=== PATIENT | male | born 1955 | race Caucasian/White ===

== ENCOUNTER → 2019-12-04 12:28 | Outpatient (BNVA) | payer MEDICARE, MEDICAID, SELFPAY | PROVIDERS: Family Provider Family Medicine; PCP Family Medicine; Visit Provider Nurse Practitioner Psychiatric/Mental Health | DX: F20.0 Paranoid schizophrenia (principal) | CPT/HCPCS: 99213 ==

== ENCOUNTER → 2020-02-26 08:05 | Outpatient (BNVA) | payer MEDICARE, MEDICAID, SELFPAY | PROVIDERS: Family Provider Family Medicine; PCP Family Medicine; Visit Provider Nurse Practitioner Psychiatric/Mental Health | DX: F20.0 Paranoid schizophrenia (principal) | CPT/HCPCS: 99213 ==

== ENCOUNTER → 2020-05-20 09:11 | Outpatient (BNVA) | payer MEDICARE, MEDICAID, SELFPAY | PROVIDERS: Family Provider Family Medicine; PCP Family Medicine; Visit Provider Nurse Practitioner Psychiatric/Mental Health | DX: F20.0 Paranoid schizophrenia (principal) | CPT/HCPCS: 99213 ==

== ENCOUNTER → 2020-07-29 07:51 | Outpatient (BNVA) | payer MEDICARE, MEDICAID, SELFPAY ==
[2020-06-09 15:26] VITALS: BP 109/72; BMI 26.9
== END ==
PROVIDERS: Family Provider Family Medicine; PCP Family Medicine; Visit Provider Nurse Practitioner Psychiatric/Mental Health
DX: F20.0 Paranoid schizophrenia (principal); F41.1 Generalized anxiety disorder
CPT/HCPCS: 99213

== ENCOUNTER → 2020-10-22 08:14 | Outpatient (BNVA) | payer MEDICAID, SELFPAY ==
[2020-06-09 15:26] VITALS: BP 109/72; BMI 26.9
== END ==
PROVIDERS: Family Provider Family Medicine; PCP Family Medicine; Visit Provider Nurse Practitioner Psychiatric/Mental Health
DX: F20.0 Paranoid schizophrenia (principal)
CPT/HCPCS: 99214

== ENCOUNTER → 2021-01-13 09:05 | Outpatient (BNVA) | payer MEDICAID, SELFPAY ==
[2020-10-28 10:57] VITALS: BP 109/72; BMI 26.9
== END ==
PROVIDERS: Family Provider Family Medicine; PCP Family Medicine; Visit Provider Nurse Practitioner Psychiatric/Mental Health
DX: F20.0 Paranoid schizophrenia (principal)
CPT/HCPCS: 99214

== ENCOUNTER 2021-02-20 08:49 | Outpatient (CLI) | payer MEDICAID, SELFPAY ==
[2021-02-13 13:15] VITALS: BP 109/72; BMI 26.9
--- NOTE | 2021-02-20 09:34 | XR_ITS ---
WS: [id number] HIP WITH PELVIS LEFT TECHNIQUE: 3 views of the left hip with pelvis CLINICAL INFORMATION: LYTIC LESION ON PRIOR X-RAY COMPARISON: July 30, 2019 FINDINGS: Normal anatomic alignment. No acute fractures. Moderate degenerative arthritis left hip. Vague lucent area in the left femoral neck unchanged since the prior examination. Vascular calcification. XR/XR hip LT 2-3V wo/w pel* [id number] IMPRESSION: 1. Vague lucent lesion left femoral neck is unchanged since 2019. This is inde terminant and could be further evaluated with CT or MRI for better anatomic det ail. Metastatic disease or neoplasm not entirely excluded. 2. Moderate degenerative arthritis left hip with joint space narrowing. 3. Vascular calcification. Tonnis classification: grade 2: small cysts in femoral head/acetabulum or moder ate joint space narrowing or moderate loss of head sphericity
== END 2021-02-20 08:50 | disposition home or self-care (01) ==
PROVIDERS: PCP Family Medicine; Visit Provider Family Medicine
DX: M25.852 Other specified joint disorders, left hip (principal); M16.12 Unilateral primary osteoarthritis, left hip
CPT/HCPCS: 73502

== ENCOUNTER 2021-03-25 08:11 | Outpatient (CLI) | payer MEDICARE, MEDICAID, SELFPAY ==
[2021-02-13 13:15] VITALS: BP 109/72; BMI 26.9
--- NOTE | 2021-03-25 08:23 | CT_ITS ---
WS: [id number] NONCONTRAST CT LEFT HIP TECHNIQUE: Noncontrast CT left hip with coronal and sagittal reformatted images. CLINICAL INFORMATION: LYTIC LESION L FEMORAL NECK COMPARISON: None. DLP: 908.[address] scans at [facility] use at least one of these dose optimization techniques: automat ed exposure control; mA and/or kV adjustment per patient size (includes targeted exams where dose is matched to clinical indication); or iterative reconstruction. FINDINGS: Noncontrast CT left hip. Again seen is an ill-defined region of lucency involving the femoral neck co rresponding to the findings in the prior radiograph. This measures approximately 2.5 x 1.4 cm. No marcial dence of pathologic fracture or cortical involvement. This is nonspecific in appearance and may repre sent normal osteopenic marrow and less likely lytic lesion. This appears unchanged since 2019 which i s reassuring. Recommend further evaluation with MRI to exclude underlying lesion such as myeloma. Prior healed fracture along the inferior pubic ramus with callus formation. Normal acetabulum. Modera te degenerative narrowing left hip. Minimal spurring along the acetabulum. Enthesophyte along the gre ater trochanter. No acute fractures. Proximal femoral neck appears normal. Normal femoral head. No ev idence of avascular necrosis or subchondral collapse. Vascular calcification. CT/CT hip LT wo con* [id number] IMPRESSION: 1. Again seen is an ill-defined region of lucency involving the femoral neck c orresponding to the findings in the prior radiograph. This measures approximate ly 2.5 x 1.4 cm. No evidence of pathologic fracture or cortical involvement. Th is is nonspecific in appearance and felt to represent normal variant osteopenic femoral neck and less likely lytic lesion. This appears unchanged since 2019 w hich is reassuring. Recommend further evaluation with MRI to definitively exclu de underlying lesion considering left hip pain. 2. No acute fractures. 3. Chronic fracture left inferior pubic ramus with callus formation. 4. Moderate degenerative narrowing left hip. No evidence of avascular necrosis or subchondral collapse.
--- NOTE | 2021-03-25 08:33 | XR_ITS ---
WS: [id number] Chest 2 views, 03/25/2021 Clinical Data: GENERAL ADULT MEDICAL EXAMINATION Comparison: PA and lateral chest, 04/19/2016. Findings: No nodules, masses or effusions are seen. The heart is normal. The pulmonary vascularity is not increased. No pneumonia or pneumothorax is seen. The diaphragms are flattened. The aortic arch a nd descending aorta show tortuosity. XR/XR chest 2V* [id number] Impression: Atherosclerosis and hyperinflation.
--- NOTE | 2021-03-25 10:21 | NM_ITS ---
WS: [id number] NUCLEAR MEDICINE BONE SCAN Radiopharmaceutical: 27.0 Tc-99m MDP mCi IV Injection site: Right antecubital Postinjection imaging delay: 1 hr CLINICAL INFORMATION: LYTIC BONE LESION OF HIP COMPARISON: CT hip earlier today. Prior radiograph February 20, 2021. FINDINGS: Bone lesions: There are no osseous lesions suspicious for metastatic disease. No focal uptake in the left femoral neck to correspond to the femoral neck lesion. Soft tissue contours: Normal. Kidneys: Normal. Other findings: Focal uptake in the lower cervical spine eccentric to the right involving the posteri or elements may be due to degenerative change versus recent trauma. Patient reports recent fall with shoulder pain. Incidental degenerative radiotracer uptake in both AC joints and lower cervical spine. NM/NM bone scan whole body* [id number] IMPRESSION: 1. No evidence of osseous metastatic disease. 2. No abnormal radiotracer uptake in the left femoral neck to correspond to th e left femoral neck lesion. Previously described lucency in the femoral neck is likely benign. 3. Focal bony uptake in the right lower cervical spine involving the posterior elements may be inflammatory, degenerative, or posttraumatic. Patient reports recent fall with shoulder pain. Recommend further evaluation of the cervical sp ine with cervical spine CT
== END 2021-03-25 08:12 | disposition home or self-care (01) ==
PROVIDERS: PCP Family Medicine; Visit Provider Family Medicine
DX: Z00.00 Encounter for general adult medical examination without abnormal findings (principal); M89.9 Disorder of bone, unspecified; I70.90 Unspecified atherosclerosis; S32.502A Unspecified fracture of left pubis, initial encounter for closed fracture; X58.XXXA Exposure to other specified factors, initial encounter
CPT/HCPCS: 71046; 73700; 78306; A9561

== ENCOUNTER → 2021-04-01 14:10 | Outpatient (BNVA) | payer OTHER, SELFPAY ==
[2021-02-13 13:15] VITALS: BP 109/72; BMI 26.9
== END ==
PROVIDERS: PCP Family Medicine; Visit Provider Nurse Practitioner Psychiatric/Mental Health
DX: F20.0 Paranoid schizophrenia (principal); Z79.899 Other long term (current) drug therapy
CPT/HCPCS: 80061; 83036

== ENCOUNTER → 2021-04-07 10:36 | Outpatient (BNVA) | payer MEDICARE, MEDICAID, SELFPAY ==
[2021-04-02 15:17] VITALS: BP 105/65; BMI 25.8
== END ==
PROVIDERS: PCP Family Medicine; Visit Provider Nurse Practitioner Psychiatric/Mental Health
DX: F20.0 Paranoid schizophrenia (principal)
CPT/HCPCS: 99214

== ENCOUNTER → 2021-06-30 10:39 | Outpatient (BNVA) | payer MEDICARE, MEDICAID, SELFPAY ==
[2021-04-02 15:17] VITALS: BP 105/65; BMI 25.8
== END ==
PROVIDERS: PCP Family Medicine; Visit Provider Nurse Practitioner Psychiatric/Mental Health
DX: F20.0 Paranoid schizophrenia (principal)
CPT/HCPCS: 99214

== ENCOUNTER 2021-07-27 13:20 | Emergency (ER) | payer MEDICARE, MEDICAID, SELFPAY ==
[2021-04-02 15:17] VITALS: BP 105/65; BMI 25.8
[2021-07-27 14:00] VITALS: BP 150/78; PULSE 81; RESP 16; TEMP 36.8; O2SAT 100; BMI 25.4
--- NOTE | 2021-07-27 20:52 | ED_ITS ---
HPI - Skin/Abscess/Foreign Bdy General: Chief complaint: Skin/Abscess/Foreign Body Stated complaint: SKIN INFECTION POST BUG BITE Time Seen by Provider: 07/27/21 20:41 Source: patient Mode of arrival: ambulatory Limitations: no limitations History of Present Illness: HPI narrative: Patient is a 66-year-old male who presents to ED today with a complaint of an abscess under his left axillary region. Patient states he first began noticing symptoms approximately 3 to 4 days and thought he initially got bit by an insect/spider. Patient states since that time lesion has continued to worsen and states now it has a hole in it . He states area has been draining. No known history of staph or MRSA. He has not been running fevers. MD complaint: abscess/boil Onset (ago): day(s) Tetanus up to date: yes Location: LUE (axillary region) Severity: moderate Pain Consistency: constant Relieving factors: none Exacerbating factors: none Context: other (possible insect bite although never witnessed) Associated symptoms: Reports no associated symptoms; Deny chills, fever(s), nausea or vomiting Treatments prior to arrival: none Review of Systems Const: Denies: fever(s), chills, body aches, fatigue or malaise Card: Denies: chest pain Resp: Denies: dyspnea GI: Denies: nausea, vomiting or diarrhea Musc: Denies: neck pain or joint pain Skin/Breast: Reports: new lesions (L axillary region) Neuro: Denies: numbness in extremities, weakness in extremities or sensory changes PFS ED PFSH: Medical History (Updated 07/27/21 @ 22:07 by NISREEN Hale) Paranoid schizophrenia Psychiatric care Family History Grandfather Cancer CAD (coronary artery disease) Hypertension Mother Cancer Other Paranoid schizophrenia Social History (Updated 04/01/21 @ 15:08 by Ariadne Mack LPN) Smoking and tobacco status: former smoker Quit status (tobacco): has quit using tobacco Year quit tobacco: 2010 Second hand smoke exposure: No Alcohol intake: never Adopted: No Caregiver/support person: Yes Lives independently: No Housing: Assisted Living Facility Marital status: Single Number of children: 0 Highest education level completed: High School Graduate service: No Current occupational status: disabled Current occupational exposures/hazards: No Pets and animals: No History of recent travel: No Leisure activites: other Leisure activities details: read jokes, walking Sexually active: No Current gender identity: Male Sherrill/Lutheran: Jehovah'S Witness Agree to transfusion: Yes Financial difficulty paying for basics: Not Very Hard Physical Exam Const: COMMON NORMALS: no acute distress, average body habitus, patient oriented x3, no limitations, alert and well nourished GENERAL APPEARANCE: cooperative and disheveled ORIENTATION/CONSCIOUSNESS: Yes awake, Yes oriented to person, Yes oriented to place and Yes oriented to time HENMT: COMMON NORMALS: normocephalic and atraumatic HEAD & SCALP: normocephalic and atraumatic Resp: COMMON NORMALS: normal respiratory effort and clear to auscultation bilaterally AUSCULTATION: clear to auscultation bilaterally Cardio: COMMON NORMALS: regular rate and regular rhythm RATE: regular rate RHYTHM: regular rhythm Extremity: COMMON NORMALS: normal to inspection, full ROM, capillary refill normal, no joint enlargement and no clubbing, cyanosis or edema GENERAL: Yes normal exam except as noted Neuro: COMMON NORMALS: patient oriented x3 SENSORIUM/ORIENTATION: Yes alert, Yes oriented to person, Yes oriented to place and Yes oriented to time Skin: NARRATIVE SKIN EXAM: pt has a macerated appearing lesion underneath L axilla (measures approximately 1.5 in x 3 in) that extends onto volar upper arm surface (1 in x 2 in); there is central skin breakdown to axilla with eschar/granulation tissue formation; purulent non-odorous drainage expressed from axilla; small developing abscess to volar upper arm that is not amendable to I&D at this time; NV intact extremity with normal ROM Course Vital Signs: Vital signs: Vital Signs Temperature 98.2 F 07/27/21 14:00 Pulse Rate 80 07/27/21 20:53 Respiratory Rate 16 07/27/21 20:53 Blood Pressure 148/72 07/27/21 20:53 Pulse Oximetry 100 07/27/21 20:53 MDM - Skin/Abscess/Foreign Bdy MDM Narrative: Medical decision making narrative: Lesion is already actively draining on its own. Wound culture obtained. There is nothing further to incise and drain at this time. Patient is not febrile or tachycardic. He is normal white count. Patient was given IM clindamycin here will be placed on antibiotics at home with close follow-up. Remainder of labs are unremarkable. He chronically has mild hyponatremia. Lab Data: Labs: Lab Results 07/27/21 07/27/21 21:30 21:30 WBC 9.7 10^3/uL 10^3/ uL (4.0-10.0) RBC 4.12 10^6/uL 10^6 /uL (4.1-5.3) Hgb 12.4 g/dL g/dL (11.7-16.6) Hct 37.2 % L % (42.0-52.0) MCV 90.3 fl fl (80-94) MCH 30.1 pg pg (28.0-34.0) MCHC 33.3 g/dL g/dL (30.0-36.0) RDW 12.3 % % (12.1-15.1) Plt Count 297 10^3/cmm 10^3 /cmm (130-400) MPV 9.1 fL fL (7.4-10.4) Neut % (Auto) 60.2 % % Lymph % (Auto) 23.4 % % [place] % (Auto) 10.4 % % Eos % (Auto) 3.7 % % Baso % (Auto) 0.9 % % Neut # (Auto) 5.81 10^3/uL 10^3 /uL (1.8-7.7) Lymph # (Auto) 2.3 10^3/uL 10^3/ uL (0.8-4.8) [place] # (Auto) 1.0 10^3/uL H 10^ 3/uL (0.2-0.9) Eos # (Auto) 0.4 10^3/uL 10^3/ uL (0.0-0.8) Baso # (Auto) 0.1 10^3/uL 10^3/ uL (0.0-0.1) Nucleated RBC % (a uto) 0 % % Nucleated RBCs # 0.0 /100WBC /100W BC Sodium 129 mmol/L L mmol /L (136-145) Potassium 4.3 mmol/L mmol/L (3.5-5.1) Chloride 92 mmol/L L mmol/ L (98-107) Carbon Dioxide 28 mmol/L mmol/L (22-29) Anion Gap 13.3 (5-19) BUN 5 mg/dL L mg/dL (8-23) Creatinine 0.5 mg/dL L mg/dL (0.7-1.2) GFR Calculation 166.9 mL/min H mL /min (90-130) Glucose 113 mg/dL mg/dL (65-115) Calculated Osmolal ity 266 mOsm/kg L mOs m/kg (285-295) Calcium 9.0 mg/dL mg/dL (8.5-10.5) Total Bilirubin 0.3 mg/dL mg/dL (0.15-1.2) AST 16 U/L U/L (0-40) ALT 9 U/L U/L (0-41) Alkaline Phosphata se 90 IU/L IU/L (40-130) Total Protein 7.3 g/dL g/dL (6.6-8.7) Albumin 3.8 g/dL g/dL (3.5-5.2) Globulin 3.5 g/dL g/dL (1.3-4.6) Discharge Plan Discharge Patient Disposition: Home Clinical Impression: Abscess of axilla, left Condition: Stable Prescriptions: New clindamycin HCl 300 mg capsule 300 mg PO Q6H 7 Days Qty: 28 RF: 0 No Action albuterol sulfate 90 mcg/actuation HFA aerosol inhaler 2 puff INHALATION Q6H PRNRF: 0 ibuprofen 800 mg tablet 800 mg PO Q4H PRNRF: 0 sodium chloride [Saline Nasal] 0.65 % aerosol,spray 2 spray INTRANASAL QID PRNRF: 0 acetaminophen [Tylenol] 325 mg tablet 325 mg PO .COMPLEX PRNRF: 0 montelukast [Singulair] 10 mg tablet 10 mg PO DAILY RF: 0 lisinopril 10 mg tablet 10 mg PO DAILY RF: 0 levetiracetam [Keppra] 1,000 mg tablet 1,000 mg PO BID RF: 0 levetiracetam [Keppra] 250 mg tablet 250 mg PO BID RF: 0 prenat.vits,gabi,skb-yidi-ywkny Tablet 1 tab PO DAILY RF: 0 aripiprazole [Abilify] 30 mg tablet 30 mg PO DAILY Qty: 30 RF: 6 benztropine 0.5 mg tablet 0.5 mg PO DAILY Qty: 30 RF: 6 perphenazine 4 mg tablet 4 mg PO BID Qty: 60 RF: 6 Discharge Orders: Discharge ED (Routine); Ordered 07/27/21 Ordered By: Argelia Jackson Referrals: Mague Spence MD [Primary Care Provider] - Patient Instructions: Abscess (ED) Activity Restrictions/Additional Instructions: As we discussed please keep area clean with warm soap and water and dressed daily. Begin your antibiotics immediately. You need to have your primary care provider reassess you in 2 to 3 days to monitor clinical response. You need to return to the emergency department immediately for worsening abscess, fevers greater than 100.4, severe pain, or any other concerns you may have. Coding Level of Care Code ED Ring Stamper for [place] Fwd Exam Detailed
[2021-07-27 20:53] VITALS: BP 148/72; PULSE 80; RESP 16; O2SAT 100
[2021-07-27] MEDS: clindamycin 150 mg/mL SDV 6 mL 600 MG IM (21:44)
[2021-07-27 21:47] LABS: Basophils # 0.1 10^3/uL (0.0-0.1); Basophils % 0.9 %; Eosinophils # 0.4 10^3/uL (0.0-0.8); Eosinophils % 3.7 %; Hematocrit 37.2 % (42.0-52.0); Hemoglobin 12.4 g/dL (11.7-16.6); Lymphocytes # 2.3 10^3/uL (0.8-4.8); Lymphocytes % 23.4 %; Mean Corpuscular HGB Conc 33.3 g/dL (30.0-36.0); Mean Corpuscular Hemoglobin 30.1 pg (28.0-34.0); Mean Corpuscular Volume 90.3 fl (80-94); Mean Platelet Volume 9.1 fL (7.4-10.4); Monocytes % 10.4 %; Neutrophils # 5.81 10^3/uL (1.8-7.7); Neutrophils % 60.2 %; Nucleated Red Blood Cells % 0 %; Platelet Count 297 10^3/cmm (130-400); Red Blood Count 4.12 10^6/uL (4.1-5.3); Red Cell Distribution Width 12.3 % (12.1-15.1); White Blood Count 9.7 10^3/uL (4.0-10.0)
[2021-07-27 21:58] LABS: Alanine Aminotransferase 9 U/L (0-41); Albumin Level 3.8 g/dL (3.5-5.2); Alkaline Phosphatase 90 IU/L (40-130); Anion Gap 13.3 (5-19); Aspartate Amino Transferase 16 U/L (0-40); Blood Urea Nitrogen 5 mg/dL (8-23); Carbon Dioxide 28 mmol/L (22-29); Chloride 92 mmol/L (98-107); Globulin 3.5 g/dL (1.3-4.6); Glomerular Filtration Rate 166.9 mL/min (90-130); Glucose 113 mg/dL (65-115); Osmolality Calculated 266 mOsm/kg (285-295); Potassium 4.3 mmol/L (3.5-5.1); Sodium 129 mmol/L (136-145); Total Bilirubin 0.3 mg/dL (0.15-1.2); Total Protein 7.3 g/dL (6.6-8.7)
[2021-07-27 22:22] VITALS: PULSE 88; RESP 16; O2SAT 96
== END 2021-07-27 22:23 | disposition home or self-care (01) ==
PROVIDERS: Emergency Provider Physician Assistant; PCP Family Medicine
DX: L02.412 Cutaneous abscess of left axilla (principal); Z87.891 Personal history of nicotine dependence
CPT/HCPCS: 80053; 85025; 87070; 87075; 87077; 87186; 87205; 96372; 99283; J3490

== ENCOUNTER → 2021-09-28 09:45 | Outpatient (BNVA) | payer MEDICARE, MEDICAID, SELFPAY ==
[2021-04-02 15:17] VITALS: BP 105/65; BMI 25.8
== END ==
PROVIDERS: PCP Family Medicine; Visit Provider Nurse Practitioner Psychiatric/Mental Health
DX: F20.0 Paranoid schizophrenia (principal)
CPT/HCPCS: 99213

== ENCOUNTER → 2021-12-28 10:34 | Outpatient (BNVA) | payer MEDICARE, MEDICAID, SELFPAY ==
[2021-04-02 15:17] VITALS: BP 105/65; BMI 25.8
== END ==
PROVIDERS: PCP Family Medicine; Visit Provider Nurse Practitioner Psychiatric/Mental Health
DX: F20.0 Paranoid schizophrenia (principal)
CPT/HCPCS: 99214

== ENCOUNTER → 2022-03-22 10:58 | Outpatient (BNVA) | payer MEDICARE, MEDICAID, OTHER, SELFPAY ==
[2022-03-11 10:39] VITALS: BP 105/65; BMI 25.8
== END ==
PROVIDERS: PCP Family Medicine; Visit Provider Nurse Practitioner Psychiatric/Mental Health
DX: F20.0 Paranoid schizophrenia (principal)
CPT/HCPCS: 99214

== ENCOUNTER → 2022-05-03 12:03 | Outpatient (BNVA) | payer OTHER, SELFPAY ==
[2022-04-08 11:00] VITALS: BP 105/65; BMI 25.8
== END ==
PROVIDERS: PCP Family Medicine; Visit Provider Nurse Practitioner Psychiatric/Mental Health
DX: F20.0 Paranoid schizophrenia (principal); Z79.899 Other long term (current) drug therapy
CPT/HCPCS: 80061; 83036

== ENCOUNTER → 2023-04-18 16:07 | Outpatient (BNVA) | payer OTHER, SELFPAY ==
[2022-09-28 10:44] VITALS: BP 107/64; BMI 25.3
== END ==
PROVIDERS: PCP Family Medicine; Visit Provider Psychiatry & Neurology Neurology
DX: Z79.899 Other long term (current) drug therapy (principal)
CPT/HCPCS: 80061; 83036

== ENCOUNTER 2023-10-22 14:35 | Emergency (ER) | payer MEDICARE, MEDICAID, SELFPAY ==
[2023-09-20 10:12] VITALS: BP 103/60; BMI 24.5
[2023-10-22 14:41] VITALS: BP 85/52; PULSE 64; RESP 17; O2SAT 98; BMI 25.4
[2023-10-22 14:49] VITALS: BP 85/52; PULSE 66; O2SAT 99
[2023-10-22 15:03] LABS: Basophils % 0.3 %; Eosinophils % 0.3 %; Hematocrit 38.6 % (37-53); Lymphocytes # 1.9 10^3/uL (0.8-4.8); Lymphocytes % 14.6 %; Mean Corpuscular Hemoglobin 30.6 pg (27-33); Mean Corpuscular Volume 87.5 fl (82-101); Mean Platelet Volume 10.4 fL (7.4-10.4); Monocytes # 0.6 10^3/uL (0.2-0.9); Neutrophils # 10.07 10^3/uL (1.8-7.7); Neutrophils % 79.5 %; Nucleated Red Blood Cells % 0 %; Platelet Count 199 10^3/cmm (157-399); Red Blood Count 4.41 10^6/uL (3.85-5.65); Red Cell Distribution Width 12.8 % (12.1-15.1); White Blood Count 12.67 10^3/uL (3.29-11.43)
--- NOTE | 2023-10-22 15:04 | XRR_ITS ---
PROCEDURE INFORMATION: Exam: XR Chest Exam date and time: 10/22/2023 3:16 PM Age: 68 years old Clinical indication: Other: HTN; Additional info: Hypotension TECHNIQUE: Imaging protocol: Radiologic exam of the chest. Views: 1 view. COMPARISON: CR XR chest 2V* [id number] 03/25/2021 8:43 AM FINDINGS: Lungs: Emphysematous changes of the lungs. No consolidation. Pleural spaces: Unremarkable. No pleural effusion. No pneumothorax. Heart/Mediastinum: Unremarkable. No cardiomegaly. Bones/joints: Unremarkable. XR/XR chest 1V portable [id number] IMPRESSION: No acute findings.
--- NOTE | 2023-10-22 15:14 | ED_ITS ---
HPI - Altered Mental Status 2 General: Chief Complaint: Altered Mental Status Stated Complaint: AMS Time Seen by Provider: 10/22/23 14:43 History of Present Illness: Patient was brought in for evaluation for altered mental status and low blood pressure. Upon talking the patient patient does not appear altered his he is alert and oriented x 4. Patient states he did slightly fall backwards on his bed but he did not hit his head. Patient's blood pressure per EMS was 70/42. Patient's blood pressure upon arrival was 85/52. Patient had no other complaints other than mild nausea. Patient is on blood pressure medicine and did take it this morning. Review of Systems 2 General: Reports: 10 or more systems reviewed and unremarkable except in HPI and below PFSH ED 2 PFSH: Medical History Psychiatric care Paranoid schizophrenia Family History Grandfather Cancer CAD (coronary artery disease) Hypertension Mother Cancer Other Paranoid schizophrenia Social History Smoking and tobacco/nicotine status: former use of tobacco/nicotine Quit status (tobacco/nicotine): has quit using Year quit tobacco: 2010 Second hand smoke exposure: No Alcohol intake: former Year of sobriety/quit date alcohol: 1987 Former alcohol use details: beer mixed with wine and whiskey Substance/Drug Use: former Date of last use: went to [employer] parties in the Adopted: No Caregiver/support person: Yes ([facility]) Lives independently: No Household members: other Details: [facility] assisted living facility Housing: Assisted Living Facility Marital status: Single Number of children: 0 Highest education level completed: High School Graduate service: No Current occupational status: disabled Current occupational exposures/hazards: No Pets and animals: No Leisure activites: reading and other Leisure activities details: read jokes, walking, plays lottery tickets Sexually active: No Do you think of yourself as: Straight/Heterosexual Current gender identity: Male Sherrill/Adventist: [employer] Special sherrill needs: No Agree to transfusion: Yes Physical Exam 2 Const: COMMON NORMALS: no acute distress, average body habitus, patient oriented x3, no limitations, healthy appearing, alert and well nourished HENMT: COMMON NORMALS: normocephalic, atraumatic, hearing grossly normal bilaterally, external ears normal, Normal external nose present, moist oral mucous membranes and oropharynx normal HEAD & SCALP: normocephalic and atraumatic NOSE: Normal external nose present EXTERNAL EAR: Yes external ears normal Neck/C-Spine: COMMON NORMALS: no JVD Chest: COMMONS NORMALS: normal inspection of the chest and normal palpation of entire chest wall Resp: COMMON NORMALS: normal respiratory effort, No retractions, No use of accessory muscles and clear to auscultation bilaterally AUSCULTATION: clear to auscultation bilaterally Cardio: COMMON NORMALS: no JVD, regular rate, regular rhythm, S1 normal heart sound present, S2 normal heart sound present, No gallops present (Cardio), No clicks present (Cardio), No murmurs present (Cardio) and No rub (Cardio) R ATE: regular rate RHYTHM: regular rhythm HEART SOUNDS: S1 normal heart sound present and S2 normal heart sound present GI: COMMON NORMALS: Normal to inspection, nondistended, normoactive bowel sounds present, Soft to palpation, non-tender, No hepatosplenomegaly present and no masses PALPATION: Yes Soft to palpation and Yes No hepatosplenomegaly present Neuro: COMMON NORMALS: patient oriented x3 SENSORIUM/ORIENTATION: Yes alert Course 2 Vital Signs: Vital signs: Vital Signs Pulse Rate 74 10/22/23 16:19 Respiratory Rate 17 10/22/23 14:41 Blood Pressure 91/55 10/22/23 16:19 Pulse Oximetry 100 10/22/23 16:19 Oxygen Delivery Me thod Room Air 10/22/23 15:49 MDM - Altered Mental Status Medical Decision Making Patient had lab work obtained essentially benign other than a sodium of 123. Patient was given 2 L of normal saline IV. This did help the patient's blood pressure rise to approximately 93/54. Patient refused to give us a urine sample. Patient was asymptomatic during his entire stay. Patient was on for sure about his dosing of his lisinopril and he said he took it only when he remembered it. We will cut this in half and decrease it from 10 mg to 5 mg. Otherwise patient should follow-up with his PCP within the next 7 to 10 days for further evaluation and treatment. Differential Diagnosis Unlikely alcoholic intoxication, altered mental status, delirium, dementia, hypoglycemia, hyponatremia, subarachnoid hemorrhage or sepsis Medical Records I reviewed the patient's medical records. Lab Data I reviewed the patient's lab results. 10/22/23 14:17 10/22/23 14:17 Radiology Impressions Chest X-Ray 10/22/23 15:04 IMPRESSION: No acute findings. Laboratory Results WBC 12.67 10^3/uL (3.29-11.43) H 10/22/23 14:17 RBC 4.41 10^6/uL (3.85-5.65) 10/22/23 14:17 Hgb 13.50 g/dL (11.27-16.99) 10/22/23 14:17 Hct 38.6 % (37-53) 10/22/23 14:17 MCV 87.5 fl (82-101) 10/22/23 14:17 MCH 30.6 pg (27-33) 10/22/23 14:17 MCHC 35.0 g/dL (30-55) 10/22/23 14:17 RDW 12.8 % (12.1-15.1) 10/22/23 14:17 Plt Count 199 10^3/cmm (157-399) 10/22/23 14:17 MPV 10.4 fL (7.4-10.4) 10/22/23 14:17 Neut % (Auto) 79.5 % 10/22/23 14:17 Lymph % (Auto) 14.6 % 10/22/23 14:17 [place] % (Auto) 5.0 % 10/22/23 14:17 Eos % (Auto) 0.3 % 10/22/23 14:17 Baso % (Auto) 0.3 % 10/22/23 14:17 Neut # (Auto) 10.07 10^3/uL (1.8-7.7) H 10/22/23 14:17 Lymph # (Auto) 1.9 10^3/uL (0.8-4.8) 10/22/23 14:17 [place] # (Auto) 0.6 10^3/uL (0.2-0.9) 10/22/23 14:17 Eos # (Auto) 0.0 10^3/uL (0.0-0.8) 10/22/23 14:17 Baso # (Auto) 0.0 10^3/uL (0.0-0.1) 10/22/23 14:17 Nucleated RBC % (auto) 0 % 10/22/23 14:17 Nucleated RBCs # 0.0 /100WBC 10/22/23 14:17 Sodium 123 mmol/L (136-145) L 10/22/23 14:17 Potassium 4.0 mmol/L (3.5-5.1) 10/22/23 14:17 Chloride 90 mmol/L (98-107) L 10/22/23 14:17 Carbon Dioxide 21 mmol/L (22-29) L 10/22/23 14:17 Anion Gap 16.0 (5-19) 10/22/23 14:17 BUN 11 mg/dL (8-23) 10/22/23 14:17 Creatinine 0.6 mg/dL (0.7-1.2) L 10/22/23 14:17 GFR Calculation 134.4 mL/min (90-130) H 10/22/23 14:17 Glucose 136 mg/dL (65-115) H 10/22/23 14:17 Calculated Osmolality 257 mOsm/kg (285-295) L 10/22/23 14:17 Calcium 8.7 mg/dL (8.5-10.5) 10/22/23 14:17 Total Bilirubin 0.6 mg/dL (0.15-1.2) 10/22/23 14:17 AST 29 U/L (0-40) 10/22/23 14:17 ALT 15 U/L (0-41) 10/22/23 14:17 Alkaline Phosphatase 85 U/L (40-130) 10/22/23 14:17 Total Protein 6.7 g/dL (6.6-8.7) 10/22/23 14:17 Albumin 4.0 g/dL (3.5-5.2) 10/22/23 14:17 Globulin 2.7 g/dL (1.3-4.6) 10/22/23 14:17 All radiology interpretation(s) finalized by discharge Discharge Plan Discharge Patient Disposition: Home Clinical Impression: Hyponatremia, Acute hypotension Condition: Stable Prescriptions: New lisinopril 5 mg tablet 5 mg PO DAILY Qty: 30 0RF Discontinued lisinopril 10 mg tablet 10 mg PO DAILY No Action acetaminophen [Tylenol] 325 mg tablet 325 - 650 mg PO Q4H PRN (Reason: Pain) montelukast [Singulair] 10 mg tablet 10 mg PO DAILY levetiracetam [Keppra] 1,000 mg tablet 1,000 mg PO BID levetiracetam [Keppra] 250 mg tablet 250 mg PO BID aripiprazole [Abilify] 30 mg tablet 30 mg PO DAILY Qty: 30 6RF benztropine 0.5 mg tablet 0.5 mg PO DAILY Qty: 30 6RF perphenazine 4 mg tablet 4 mg PO BID Qty: 60 6RF Discharge Orders: Discharge ED (Routine); Ordered 10/22/23 Ordered By: Moreno Tabor Referrals: Mague Spence MD [Primary Care Provider] - 1 week Patient Instructions: Hyponatremia (ED), Hypotension (ED) Activity Restrictions/Additional Instructions: Please lower your lisinopril dose from 10 mg daily to 5 mg daily you may cut your tablets in half until you get your new prescription. The new prescription will be for 5 mg 1 tablet daily. This may help your low blood pressure and help you from getting lightheaded dizzy or passing out. Please follow-up with your family practice doctor within the next 7 to 10 days for further evaluation and treatment. Coding Level of Care Code ED Registry Rn for Cherry Gramajo
[2023-10-22 15:18] LABS: Alanine Aminotransferase 15 U/L (0-41); Alkaline Phosphatase 85 U/L (40-130); Aspartate Amino Transferase 29 U/L (0-40); Blood Urea Nitrogen 11 mg/dL (8-23); Calcium 8.7 mg/dL (8.5-10.5); Carbon Dioxide 21 mmol/L (22-29); Chloride 90 mmol/L (98-107); Globulin 2.7 g/dL (1.3-4.6); Glomerular Filtration Rate 134.4 mL/min (90-130); Glucose 136 mg/dL (65-115); Osmolality Calculated 257 mOsm/kg (285-295); Sodium 123 mmol/L (136-145); Total Bilirubin 0.6 mg/dL (0.15-1.2); Total Protein 6.7 g/dL (6.6-8.7)
[2023-10-22 15:19] VITALS: BP 83/52; PULSE 72; O2SAT 99
[2023-10-22] MEDS: sodium chloride 0.9% 1,000 ML 999 ML IV (15:25)
[2023-10-22 15:49] VITALS: BP 86/55; PULSE 83; O2SAT 100
[2023-10-22 16:19] VITALS: BP 91/55; PULSE 74; O2SAT 100
--- NOTE | 2023-10-22 17:30 | PC.NURSE ---
I have given the patient 2 liters of fluids and 2 large 16 oz cups of water. Patient is refusing to urinate, he states that he will pee in the morning.
== END 2023-10-22 18:03 | disposition home or self-care (01) ==
PROVIDERS: Emergency Provider Emergency Medicine; PCP Family Medicine
DX: E87.1 Hypo-osmolality and hyponatremia (principal); I95.9 Hypotension, unspecified; Z87.891 Personal history of nicotine dependence
CPT/HCPCS: 71045; 80053; 85025; 96360; 99284; J7030

== ENCOUNTER → 2024-03-05 13:32 | Outpatient (BNVA) | payer MEDICARE, OTHER, SELFPAY ==
[2024-01-25 09:44] VITALS: BP 103/60; BMI 24.5
== END ==
PROVIDERS: PCP Family Medicine; Visit Provider Nurse Practitioner Psychiatric/Mental Health
DX: Z79.899 Other long term (current) drug therapy (principal)
CPT/HCPCS: 80061; 83036

== ENCOUNTER 2024-08-15 13:54 | Inpatient (IN) | payer MEDICARE, MEDICAID, SELFPAY ==
[2024-06-25 08:14] VITALS: BP 130/75; BMI 25.6
[2024-08-15 14:00] VITALS: BP 131/72; PULSE 77; RESP 18; TEMP 36.4; O2SAT 100; BMI 27.1
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
[2024-08-15 14:09] VITALS: BP 131/72; PULSE 77; O2SAT 100
--- NOTE | 2024-08-15 14:22 | PC.NURSE ---
PATIENT HAS $20 IN [employer]ALLET, VERIFIED WITH SECURITY YUE. PATIENT REQUEST TO KEEP IN WALLET.
--- NOTE | 2024-08-15 15:00 | PC.PHAR ---
patient is from [facility]
[2024-08-15 15:03] LABS: Covid PCR NEGATIVE (Negative); Influenza A NEGATIVE (Negative); Influenza B NEGATIVE (Negative); Respiratory Syncytial Virus Ce NEGATIVE (Negative)
[2024-08-15 15:05] LABS: Basophils # 0.1 10^3/uL (0.0-0.1); Basophils % 0.7 %; Eosinophils # 0.2 10^3/uL (0.0-0.8); Eosinophils % 2.1 %; Hematocrit 38.1 % (37-53); Lymphocytes # 2.2 10^3/uL (0.8-4.8); Lymphocytes % 30.1 %; Mean Corpuscular HGB Conc 35.7 g/dL (30-55); Mean Corpuscular Hemoglobin 30.9 pg (27-33); Mean Corpuscular Volume 86.6 fl (82-101); Mean Platelet Volume 9.3 fL (7.4-10.4); Monocytes % 13.2 %; Neutrophils # 3.89 10^3/uL (1.8-7.7); Neutrophils % 53.6 %; Nucleated Red Blood Cells % 0 %; Platelet Count 223 10^3/cmm (157-399); Red Cell Distribution Width 13.2 % (12.1-15.1); White Blood Count 7.25 10^3/uL (3.29-11.43)
--- NOTE | 2024-08-15 15:06 | ECG_ITS ---
[facility] Test Date: 2024-08-15 Pat Name: Kory Summers Department: Room: Gender: Male Wood Carver Hand: : 1955 Requested By: Mary Juarez Order Number: [id number] Reading MD: NING MALIN Measurements Intervals [place] Rate: 75 P: 49 MT: 199 QRS: 64 QRSD: 101 T: 59 QT: 391 QTc: 438 Interpretive Statements SINUS RHYTHM Compared to ECG 07/12/2016 15:42:56 No significant changes Electronically Signed On 08-15-2024 17:18:54 BRASS POURER by NING MALIN [id number]
--- NOTE | 2024-08-15 15:08 | PC.NURSE ---
96 hour hold rights read and reviewed with patient. Patient stated I am not signing anything and today is not the 20th its the . This nurse continued to read rights to patient. Henry from security present during reading of rights. Copy of rights given to patient.
[2024-08-15 15:39] LABS: Alanine Aminotransferase 26 U/L (0-41); Albumin Level 4.4 g/dL (3.5-5.2); Alkaline Phosphatase 107 U/L (40-130); Anion Gap 12.8 (5-19); Aspartate Amino Transferase 56 U/L (0-40); Blood Urea Nitrogen 5 mg/dL (8-23); Calcium 8.8 mg/dL (8.5-10.5); Carbon Dioxide 27 mmol/L (22-29); Chloride 83 mmol/L (98-107); Creatinine Clr Calc Pharmacy 94.7555; Globulin 3.1 g/dL (1.3-4.6); Glomerular Filtration Rate 165.4 mL/min (90-130); Glucose 121 mg/dL (65-115); Osmolality Calculated 247 mOsm/kg (285-295); Potassium 3.8 mmol/L (3.5-5.1); Salicylate 0.6 mg/dL (3-10); Thyroid Stimulating Hormone 1.96 uIU/mL (0.27-4.20); Total Bilirubin 0.4 mg/dL (0.15-1.2); Total Protein 7.5 g/dL (6.6-8.7)
[2024-08-15 15:56] LABS: Acetaminophen < 5.0 ug/mL (10-30); Alcohol Level < 10 mg/dL (0-10); Sodium 119 mmol/L (136-145)
[2024-08-15] MEDS: sodium chloride 0.9% 1,000 ML 999 ML IV (16:22)
[2024-08-15 16:32] LABS: Bacteria Urine None Seen /hpf; Hyaline Casts Urine 0-4 /lpf; RBC Urine 0-2 /hpf (0-2); Squamous Epithelial Cell Urine 0-5 /hpf (0-5); WBC Urine 0-5 /hpf (0-5)
[2024-08-15 16:38] LABS: Amphetamines Screen Urine Negative (Negative); Barbiturates Screen Urine Negative (Negative); Benzodiazepines Screen Urine Negative (Negative); Cocaine Screen Urine Negative (Negative); Opiate Screen Urine Negative (Negative); PCP Screen Urine Negative (Negative); THC Screen Urine Negative (Negative)
[2024-08-15 16:40] LABS: Add Urine Microscopic? YES; Bilirubin Urine Negative (Negative); Blood Urine Negative (Negative); Glucose Urine UA Negative (Normal); Ketones Urine Negative (Negative); Leukocyte Esterase Urine Negative (Negative); Nitrate Urine Negative (Negative); Protein Urine Negative (Negative); Specific Gravity, Urine 1.007 (1.005-1.030); Urine Appearance Clear (CLEAR); Urine Color Yellow (Yellow); pH Urine 7.5 (5-7)
[2024-08-15 17:33] LABS: Anion Gap 12.9 (5-19); Blood Urea Nitrogen 4 mg/dL (8-23); Calcium 8.3 mg/dL (8.5-10.5); Carbon Dioxide 24 mmol/L (22-29); Chloride 89 mmol/L (98-107); Creatinine Clr Calc Pharmacy 94.7555; Glomerular Filtration Rate 213.9 mL/min (90-130); Glucose 92 mg/dL (65-115); Osmolality Calculated 251 mOsm/kg (285-295); Potassium 3.9 mmol/L (3.5-5.1); Sodium 122 mmol/L (136-145)
[2024-08-15 18:39] VITALS: BP 125/67; PULSE 85; O2SAT 95
[2024-08-15 19:58] VITALS: BP 145/88; PULSE 85; RESP 18; TEMP 36.2; O2SAT 97
--- NOTE | 2024-08-15 21:35 | P.HP_ITS ---
Providers/Chief Complaint 2 Primary Care Provider: Mague Spence MD Chief Complaint: 96 HOUR HOLD History of Present Illness Kory Summers is a 69 year old male with a past medical history significant for paranoid schizophrenia, hyponatremia, tobacco use disorder in remission, hypertension, seizure disorder, and multiple other comorbidities who presented emergency department with homicidal ideation. Patient is currently on 96-hour hold. He reportedly arrives with multiple affidavits regarding homicidal ideations. There is also concerns for reported hallucinations. Upon assessment, patient is awake and alert. He complains of chronic toe and feet pains. Denies fevers, chills, nausea or emesis. Symptoms of speech is incomprehensible at times. He is noted to be a very poor historian. In the emergency department, patient was found to have hyponatremia. He has a known history of chronic hyponatremia. ED attempted to place patient in geriatric psychiatric care however was unable to. ED provider Seth Jama reported Dr. Rodriguez had offered to accept the patient for hyponatremia workup if not placed. Patient was not placed and now presents for hyponatremia workup. Review of Systems 2 Narrative: A complete review of systems was obtained and is negative except as stated in HPI. Medications/Allergies Home Medications Medication Instructions Recorded Confirmed Last Taken Type acetaminophen 325 mg tablet 325 - 650 mg PO Q4H PRN Pain 12/04/19 08/15/24 Unknown History (Tylenol) levetiracetam 1,000 mg tablet 1,000 mg PO BID 12/04/19 08/15/24 10/22/23 History (Keppra) levetiracetam 250 mg tablet 250 mg PO BID 12/04/19 08/15/24 10/22/23 History (Keppra) lisinopril 5 mg tablet 5 mg PO DAILY #30 tabs 10/22/23 08/15/24 Unknown Rx perphenazine 4 mg tablet 4 mg PO BID #60 tabs 04/30/24 08/15/24 Unknown Rx benztropine 0.5 mg tablet 0.5 mg PO DAILY #30 tabs 07/30/24 08/15/24 Unknown Rx losartan 50 mg tablet 50 mg PO DAILY 08/15/24 08/15/24 Unknown History Allergies Allergy/AdvReac Type Severity Reaction Status Date / Time Penicillins Allergy Severe Unknown Verified 07/30/24 11:24 raspberry Allergy Severe ADR-Vomitin Verified 07/30/24 11:24 g PFSH Acute 2 PFSH: Medical History Psychiatric care Paranoid schizophrenia Family History Grandfather Cancer CAD (coronary artery disease) Hypertension Mother Cancer Other Paranoid schizophrenia Social History Smoking and tobacco/nicotine status: former use of tobacco/nicotine Quit status (tobacco/nicotine): has quit using Year quit tobacco: 2010 Second hand smoke exposure: No Alcohol intake: former Year of sobriety/quit date alcohol: 1987 Former alcohol use details: beer mixed with wine and whiskey Substance/Drug Use: former Date of last use: went to [employer] Pets in the Adopted: No Caregiver/support person: Yes ([place]) Lives independently: No Household members: other Details: [place] assisted living facility Housing: Assisted Living Facility Marital status: Single Number of children: 0 Highest education level completed: High School Graduate service: No Current occupational status: disabled Current occupational exposures/hazards: No Pets and animals: Yes Pets & animals: cat(s) and dog(s) Pets & animal details: dog hangs around Leisure activites: reading and other Leisure activities details: read jokes, walking, plays lottery tickets Sexually active: No Do you think of yourself as: Straight/Heterosexual Current gender identity: Male Sherrill/Advent: Mandaeism Special sherrill needs: No Agree to transfusion: Yes Vitals/I&O/Wt Last Vital Signs Temp 97.1 F L 08/15/24 19:58 Pulse 85 08/15/24 19:58 Resp 18 08/15/24 19:58 BP 145/88 08/15/24 19:58 Pulse Ox 97 08/15/24 19:58 O2 Del Method Room Air 08/15/24 19:58 Weight last 48 hrs Weight 83.461 kg Physical Exam 2 Narrative: General: Patient is awake and alert. Restless. Head: Normocephalic. Atraumatic. EOM intact. Neck: No JVD. Cardiovascular: RRR. No gallops. No murmurs. Lungs: Clear to auscultation, no use of accessory muscles, no crackles or wheezes. Skin: No jaundice. No rashes. Abdomen: Normal bowel sounds, abdomen soft and nontender. Genito Urinary: Genital exam not performed since complaints not related. Rectal: Rectal exam not performed since no symptoms indicated blood loss. Extremities: No cyanosis or clubbing. Pedal onychomycosis. Musculoskeletal: No swollen or erythematous joints. Neurological: Moves all 4 extremities. No myoclonus. Restless. Speech is somewhat incomprehensible at times. Data 08/15/24 14:43 08/15/24 16:59 A&P Assessment and plan (1) Chronic hyponatremia: Chronic hyponatremia Patient euvolemic on exam TSH within normal limits Urine electrolytes ordered (2) Homicidal ideation: Patient is under 96-hour hold with affidavit Psychiatry to evaluate, may need geriatric placement (3) Acute psychosis: As above (4) Paranoid schizophrenia: Continue home medications until psychiatry evaluates (5) Hypertension: Continue lisinopril Plan DVT prophylaxis: Lovenox CODE STATUS: Assume full code Attestations 2 Medical Necessity Statement*: Patient presents with homicidal ideation, found to have chronic hyponatremia with expected hospitalization not to cross 2 midnights for hyponatremia workup and psychiatry evaluation. Coding Level of Care Code Acute Code for [facility] Fwd Diagnoses Chronic hyponatremia E87.1 Homicidal ideation R45.850 Acute psychosis F23 Paranoid schizophrenia F20.0 Hypertension I10
[2024-08-15 22:29] VITALS: BP 139/85; PULSE 79; RESP 16; O2SAT 97
[2024-08-15 23:24] VITALS: PULSE 66
[2024-08-15 23:25] VITALS: BMI 26.2
[2024-08-16] VITALS (182 sets, daily range): BP systolic 93–149; BP diastolic 55–109; PULSE 70–104; RESP 10–30; TEMP 36.3–36.8; O2SAT 88–100
[2024-08-16 03:03] LABS: Potassium, Radom Urine 13 mmol/L; Urine Random Chloride 59 mmol/L; Urine Random Sodium 75 mmol/L
[2024-08-16 03:52] LABS: Basophils # 0.1 10^3/uL (0.0-0.1); Basophils % 0.7 %; Eosinophils # 0.1 10^3/uL (0.0-0.8); Eosinophils % 1.4 %; Hematocrit 38.1 % (37-53); Lymphocytes # 1.7 10^3/uL (0.8-4.8); Mean Corpuscular HGB Conc 33.9 g/dL (30-55); Mean Corpuscular Hemoglobin 29.4 pg (27-33); Mean Corpuscular Volume 86.8 fl (82-101); Mean Platelet Volume 9.6 fL (7.4-10.4); Monocytes # 0.9 10^3/uL (0.2-0.9); Monocytes % 12.9 %; Neutrophils # 4.21 10^3/uL (1.8-7.7); Neutrophils % 60.6 %; Nucleated Red Blood Cells % 0 %; Platelet Count 209 10^3/cmm (157-399); Red Blood Count 4.39 10^6/uL (3.85-5.65); Red Cell Distribution Width 13.1 % (12.1-15.1); White Blood Count 6.96 10^3/uL (3.29-11.43)
[2024-08-16 04:16] LABS: Alanine Aminotransferase 24 U/L (0-41); Albumin Level 4.1 g/dL (3.5-5.2); Alkaline Phosphatase 102 U/L (40-130); Anion Gap 13.1 (5-19); Aspartate Amino Transferase 49 U/L (0-40); Blood Urea Nitrogen 4 mg/dL (8-23); Calcium 8.9 mg/dL (8.5-10.5); Carbon Dioxide 27 mmol/L (22-29); Chloride 87 mmol/L (98-107); Cortisol Random 12.02 ug/dL (2.47-19.5); Globulin 3.1 g/dL (1.3-4.6); Glomerular Filtration Rate 213.9 mL/min (90-130); Glucose 98 mg/dL (65-115); Magnesium 1.9 mg/dL (1.7-2.3); Osmolality Calculated 253 mOsm/kg (285-295); Phosphorus 2.8 mg/dL (2.5-4.5); Potassium 4.1 mmol/L (3.5-5.1); Sodium 123 mmol/L (136-145); Total Bilirubin 0.5 mg/dL (0.15-1.2); Total Protein 7.2 g/dL (6.6-8.7)
[2024-08-16] MEDS: enoxaparin 40 mg/0.4 mL Syringe SUBCUT (05:54)
--- NOTE | 2024-08-16 06:22 | PC.NURSE ---
Addendum entered by Bhumika Martin RN 08/16/24 06:30: Witnessed wallet including $20 being locked in [employer]. Original Note: Patient belongings Patient belongings including clothing, two pairs of shoes, belt, etc placed into ICU locker 1 Wallet including $20 locked in [employer]
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
[2024-08-16] MEDS: benztropine 1 mg Tablet 0.5 MG PO ×2 (08:45→17:44)
[2024-08-16] MEDS: losartan 50 mg Tablet PO (08:45)
[2024-08-16] MEDS: levETIRAcetam 500 mg Tablet 1250 MG PO ×2 (08:45→17:43)
[2024-08-16] MEDS: perphenazine 4 mg Tablet PO ×2 (08:52→17:44)
[2024-08-16 10:25] LABS: Sodium 121 mmol/L (136-145)
[2024-08-16] MEDS: ARIPiprazole 30 mg Tablet PO (10:44)
--- NOTE | 2024-08-16 12:22 | PM.PN ---
Subjective Subjective: He states he is doing all right this morning. He is checking up on his medications. Vitals/I&O/Wt Last Vital Signs Temp 98.2 F 08/16/24 08:45 Pulse 93 08/16/24 12:15 Resp 25 H 08/16/24 12:15 BP 128/96 08/16/24 12:15 Pulse Ox 100 08/16/24 12:15 O2 Del Method Room Air 08/15/24 23:25 08/15/24 08/16/24 08/16/24 22:59 06:59 14:59 Intake Total 1000 / 1000 480 / 1480 660 / 660 Output Total 800 / 800 Balance 1000 / 1000 -320 / 680 660 / 660 Weight last 48 hrs Weight 79 kg Weight 79 kg Weight 80.5 kg Weight 83.461 kg Physical Exam Narrative: Sitting up in bed. Const: COMMON NORMALS: alert GENERAL APPEARANCE: cooperative ORIENTATION/CONSCIOUSNESS: Yes awake HENMT: COMMON NORMALS: oropharynx normal Neck/C-Spine: COMMON NORMALS: no JVD Resp: COMMON NORMALS: normal respiratory effort and clear to auscultation bilaterally AUSCULTATION: clear to auscultation bilaterally Cardio: COMMON NORMALS: no JVD, regular rhythm, S1 normal heart sound present, S2 normal heart sound present and No murmurs present (Cardio) RHYTHM: regular rhythm HEART SOUNDS: S1 normal heart sound present and S2 normal heart sound present GI: COMMON NORMALS: Normal to inspection, nondistended, normoactive bowel sounds present, Soft to palpation and non-tender PALPATION: Yes Soft to palpation Extremity: COMMON NORMALS: no joint enlargement and no pedal edema Neuro: COMMON NORMALS: moves all extremities SENSORIUM/ORIENTATION: Yes alert Skin: COMMON NORMALS: no rashes or lesions noted GENERAL SKIN EXAM: no rashes or lesions noted Data 08/16/24 03:27 08/16/24 10:02 A&P Assessment and plan (1) Chronic hyponatremia: Severe hyponatremia has been placed on fluid restriction, urine sodium reviewed, 75. Noted mild improvement in sodium this morning up to 123, but again down to 121 on recheck on review this morning. Will add sodium chloride tablets. Recheck sodium level requested. Avoid overly rapid rise due to risk of OTS. Monitor sodium. Reviewed vitals, BMP, magnesium, TSH, cortisol. Continue regular diet. Chronic hyponatremia Patient euvolemic on exam TSH within normal limits Urine electrolytes ordered Discussed with continuous pillowcase cutter. (2) Homicidal ideation: Patient is under 96-hour hold with affidavit Reached out to psychiatrist. It appears patient may have indicated to [facility] outpatient clinic about not taking some of his medications (indicating that he thought one of his medications was laced with something). Reached out to psychiatrist. Psychiatry to evaluate, may need geriatric placement (3) Acute psychosis: As above (4) Paranoid schizophrenia: Continue home medications until psychiatry evaluates (5) Hypertension: Losartan. Monitor blood pressures. Plan DVT prophylaxis: Lovenox CODE STATUS: Assume full code Attestations Medical Necessity Statement*: Continue admission for assessment and management of her hyponatremia, homicidal ideation, psychosis with paranoid schizophrenia. Diagnoses Chronic hyponatremia E87.1 Homicidal ideation R45.850 Acute psychosis F23 Paranoid schizophrenia F20.0 Hypertension I10
[2024-08-16] MEDS: sodium chloride 1 gm Tablet PO ×2 (14:24→17:44)
--- NOTE | 2024-08-16 16:02 | W.PM.PSYCONS ---
Providers/Reason for Consult Consulting Physican/Specialty*: Gucci Holland MD/Psychiatry Reason for Consult*: homicidal ideation Attending Physician: Cosmo Starkey Primary Care Provider: Mague Spence MD Psych Consult HPI History of Present Illness Kory Summers is a 69 year old male currently residing at [facility] for several years who carries a diagnosis of schizophrenia. The patient had been receiving medication management services at [facility] as recently as July 30, 2024. The patient had allegedly been more disruptive and combative at the prison. He had apparently made threats to other staff and clients at [facility]. He had been accusing other staff and patients of touching him despite there being no evidence to the this matter. He reports that he had missed 2 different medications over the past 2 days. He reports that he thinks that someone at the residential facility has been giving him drugs. He reports that he has been diagnosed with a distant area. He denies feeling depressed. He did appear to complain of constipation stating that he was full of stool. Patient reported that he has been diagnosed with schizophrenia although he states that he does not believe this diagnosis. He did report having difficulties with trusting other peers. He had reported that he had sometimes refused his medications particularly over the last week. The patient was admitted to the ICU secondary to hyponatremia while awaiting placement at a Geropsychiatry facility. Patient is on a 96-hour hold although the patient had reported that his older sister is his legal guardian and she lives in [facility]. The patient was a poor historian his he had a significant speech impediment that made it difficult to completely understand him. Inpatient psychiatric history: The patient had reported a previous history of inpatient psychiatric hospitalizations for several years. Outpatient psychiatric history: The patient currently receives outpatient services at the behavioral health clinic through [facility]. Substance abuse history: Patient had previously used marijuana. He reports that he had also used alcohol but quit several years ago. He denies any history of stimulant abuse or opiate abuse. He reports no history of drug or alcohol treatment. Medical history: Hypertension, hyponatremia, seizure disorder Surgical history: Cholecystectomy Allergies: Penicillin, bee stings, raspberry Medications: Keppra 1250 mg twice a day, Cogentin 0.5 mg daily, Abilify 30 mg daily, perphenazine 4 mg twice a day, Singulair 10 mg daily, lisinopril 5 mg daily, losartan 50 mg daily Family psychiatric history: Schizophrenia per chart Legal history: None Social history: Patient reports that he is single and has never been . He reports having completed high school and has no history. He had minimized any history of sexual physical or emotional abuse. He reports that he has been living at a prison for the past 20 years. He reports that his sister is his legal guardian. Meds Home Medications and Allergies Home Medications Medication Instructions Recorded Confirmed Last Taken Type acetaminophen 325 mg tablet 325 - 650 mg PO Q4H PRN Pain 12/04/19 08/15/24 Unknown History (Tylenol) levetiracetam 1,000 mg tablet 1,000 mg PO BID 12/04/19 08/15/24 10/22/23 History (Keppra) levetiracetam 250 mg tablet 250 mg PO BID 12/04/19 08/15/24 10/22/23 History (Keppra) lisinopril 5 mg tablet 5 mg PO DAILY #30 tabs 10/22/23 08/15/24 Unknown Rx perphenazine 4 mg tablet 4 mg PO BID #60 tabs 04/30/24 08/15/24 Unknown Rx benztropine 0.5 mg tablet 0.5 mg PO DAILY #30 tabs 07/30/24 08/15/24 Unknown Rx losartan 50 mg tablet 50 mg PO DAILY 08/15/24 08/15/24 Unknown History Allergies Allergy/AdvReac Type Severity Reaction Status Date / Time Penicillins Allergy Severe Unknown Verified 07/30/24 11:24 raspberry Allergy Severe ADR-Vomitin Verified 07/30/24 11:24 g Current Medications Current Medications Generic Name Dose Route Start Last Admin Trade Name Freq PRN Reason Stop Dose Admin Aripiprazole 30 mg 08/16/24 11:00 08/16/24 10:44 Aripiprazole 30 Mg Tablet PO 30 mg DAILY EDMUND Administration Enoxaparin Sodium 40 mg 08/16/24 06:00 08/16/24 05:54 Enoxaparin 40 Mg/0.4 Ml Syringe SUBCUT 40 mg Q24H EDMUND Administration Levetiracetam 1,250 mg 08/16/24 09:00 08/16/24 08:45 Levetiracetam 500 Mg Tablet PO 1,250 mg BID EDMUND Administration Losartan Potassium 50 mg 08/16/24 09:00 08/16/24 08:45 Losartan 50 Mg Tablet PO 50 mg DAILY EDMUND Administration Perphenazine 4 mg 08/16/24 09:00 08/16/24 08:52 Perphenazine 4 Mg Tablet PO 4 mg BID EDMUND Administration Sodium Chloride 1 gm 08/16/24 12:20 08/16/24 14:24 Sodium Chloride 1 Gm Tablet PO 1 gm BID EDMUND Administration PFSH NPU PFSH: Medical History Psychiatric care Paranoid schizophrenia Family History Grandfather Cancer CAD (coronary artery disease) Hypertension Mother Cancer Other Paranoid schizophrenia Social History Smoking and tobacco/nicotine status: former use of tobacco/nicotine Quit status (tobacco/nicotine): has quit using Year quit tobacco: 2010 Second hand smoke exposure: No Alcohol intake: former Year of sobriety/quit date alcohol: 1987 Former alcohol use details: beer mixed with wine and whiskey Substance/Drug Use: former Date of last use: went to [employer] parties in the Adopted: No Caregiver/support person: Yes ([facility]) Lives independently: No Household members: other Details: [facility] assisted living facility Housing: Assisted Living Facility Marital status: Single Number of children: 0 Highest education level completed: High School Graduate service: No Current occupational status: disabled Current occupational exposures/hazards: No Pets and animals: Yes Pets & animals: cat(s) and dog(s) Pets & animal details: dog hangs around Leisure activites: reading and other Leisure activities details: read jokes, walking, plays lottery tickets Sexually active: No Do you think of yourself as: Straight/Heterosexual Current gender identity: Male Sherrill/Moravian: Mandaen Special sherrill needs: No Agree to transfusion: Yes Mental Status Exam MSE Comments: Patient was lying in the hospital bed and appeared to be a healthy 69-year-old man who appeared his stated age. There was no evidence of any abnormal involuntary motor movements, tics, or tremors appreciated. He was alert and oriented to person, place, and time. His speech was regular in regards to volume with significant mumbling noted as he was difficult to understand. His gait was not tested. His mood was described as good. His affect appeared mood incongruent and irritable. His thought process was initially linear but appeared to derail later. His thought content showed evidence of paranoia and ideas of reference. He had somatic complaints stating that there were bugs around him. He had made bizarre statements indicating that there were bugs flying out of his arm and asked the publicity writer of the note to see them or capture them. He did appear to be responding to internal stimuli at times. His recent remote memory were grossly intact. His insight is impaired. His judgment was poor. His impulse control appeared limited. Vitals/I&O/Wt Last Vital Signs Temp 98.2 F 08/16/24 08:45 Pulse 82 08/16/24 15:55 Resp 17 08/16/24 15:55 BP 141/80 08/16/24 15:55 Pulse Ox 98 08/16/24 15:55 O2 Del Method Room Air 08/15/24 23:25 08/16/24 08/16/24 08/16/24 06:59 14:59 22:59 Intake Total 480 / 1480 1140 / 1140 Output Total 800 / 800 Balance -320 / 680 1140 / 1140 Weight last 48 hrs Weight 79 kg Weight 79 kg Weight 80.5 kg Weight 83.461 kg Data NPU 08/16/24 03:27 08/16/24 10:02 A&P Assessment and plan (1) Paranoid schizophrenia: (2) Acute psychosis: Plan 69-year-old male with schizophrenia currently in ICU with a history of hyponatremia with recent disorganized behavior currently under alleged guardianship. The patient would likely benefit from an acute inpatient psychiatric stay on a geropsychiatry unit. This will occur after he is stabilized and ready for transfer. 1. Restart abilify and perfenazine as prescribed 2. Increase cogentin to .5mg bid. 3. Will continue to follow Attestations NPU Medical Necessity Statement*: Continue to treat medically and then when stabilized transfer to geropsychiatry unit. Coding Level of Care Code Acute Code for [facility] Diagnoses Paranoid schizophrenia F20.0 Acute psychosis F23
[2024-08-16 17:01] LABS: Sodium 123 mmol/L (136-145)
[2024-08-17] VITALS (25 sets, daily range): BP systolic 90–159; BP diastolic 59–97; PULSE 76–104; RESP 11–23; TEMP 36.8–37.4; O2SAT 96–99
[2024-08-17] MEDS: enoxaparin 40 mg/0.4 mL Syringe SUBCUT (05:58)
--- NOTE | 2024-08-17 08:38 | PC.SOCIAL ---
IMM Update pg 2 of IMM not updated @ this time as patient is currently on 96 hour hold and not anticipated to [facility].
[2024-08-17] MEDS: losartan 50 mg Tablet PO (08:42)
[2024-08-17] MEDS: sodium chloride 1 gm Tablet PO ×2 (08:42→14:26)
[2024-08-17] MEDS: benztropine 1 mg Tablet 0.5 MG PO ×2 (08:43→17:28)
[2024-08-17] MEDS: perphenazine 4 mg Tablet PO ×2 (08:43→17:29)
[2024-08-17] MEDS: ARIPiprazole 30 mg Tablet PO (08:43)
[2024-08-17] MEDS: levETIRAcetam 500 mg Tablet 1250 MG PO ×2 (08:43→17:29)
[2024-08-17] MEDS: acetaminophen 325 mg Tablet 650 MG PO (08:45)
[2024-08-17 09:07] LABS: Basophils % 0.6 %; Eosinophils # 0.2 10^3/uL (0.0-0.8); Eosinophils % 2.2 %; Hematocrit 40.4 % (37-53); Lymphocytes # 1.6 10^3/uL (0.8-4.8); Mean Corpuscular HGB Conc 32.9 g/dL (30-55); Mean Corpuscular Hemoglobin 29.6 pg (27-33); Mean Corpuscular Volume 89.8 fl (82-101); Mean Platelet Volume 9.4 fL (7.4-10.4); Monocytes # 0.9 10^3/uL (0.2-0.9); Monocytes % 12.2 %; Neutrophils # 4.31 10^3/uL (1.8-7.7); Neutrophils % 61.7 %; Nucleated Red Blood Cells % 0 %; Platelet Count 205 10^3/cmm (157-399); Red Cell Distribution Width 13.3 % (12.1-15.1); White Blood Count 6.97 10^3/uL (3.29-11.43)
[2024-08-17 09:24] LABS: Anion Gap 12.8 (5-19); Blood Urea Nitrogen 6 mg/dL (8-23); Calcium 9.1 mg/dL (8.5-10.5); Carbon Dioxide 24 mmol/L (22-29); Chloride 91 mmol/L (98-107); Creatinine Clr Calc Pharmacy 92.4875; Glomerular Filtration Rate 165.4 mL/min (90-130); Glucose 117 mg/dL (65-115); Osmolality Calculated 257 mOsm/kg (285-295); Potassium 3.8 mmol/L (3.5-5.1); Sodium 124 mmol/L (136-145)
[2024-08-17 14:53] LABS: Sodium 123 mmol/L (136-145)
--- NOTE | 2024-08-17 17:12 | P.PN_ITS ---
Subjective 2 Subjective: She has tolerated sodium chloride tablet so far. Denies any additional symptoms. We discussed limiting water intake, he verbalized understanding. Vitals/I&O/Wt Last Vital Signs Temp 98.5 F 08/17/24 12:00 Pulse 84 08/17/24 16:00 Resp 15 08/17/24 16:00 BP 126/80 08/17/24 16:00 Pulse Ox 99 08/17/24 16:00 O2 Del Method Room Air 08/17/24 16:00 08/17/24 08/17/24 08/17/24 06:59 14:59 22:59 Intake Total 100 / 760 1200 / 1200 Output Total 600 / 2070 125 / 125 Balance -500 / -1310 1075 / 1075 Weight last 48 hrs Weight 78.925 kg Weight 79 kg Weight 79 kg Weight 80.5 kg Physical Exam 2 Const: COMMON NORMALS: alert GENERAL APPEARANCE: cooperative O RIENTATION/CONSCIOUSNESS: Yes awake HENMT: COMMON NORMALS: oropharynx normal Neck/C-Spine: COMMON NORMALS: no JVD Resp: COMMON NORMALS: normal respiratory effort and clear to auscultation bilaterally AUSCULTATION: clear to auscultation bilaterally Cardio: COMMON NORMALS: no JVD, regular rhythm, S1 normal heart sound present, S2 normal heart sound present and No murmurs present (Cardio) RHYTHM: regular rhythm HEART SOUNDS: S1 normal heart sound present and S2 normal heart sound present GI: COMMON NORMALS: Normal to inspection, nondistended, normoactive bowel sounds present, Soft to palpation and non-tender PALPATION: Yes Soft to palpation Extremity: COMMON NORMALS: no joint enlargement and no pedal edema Neuro: COMMON NORMALS: moves all extremities SENSORIUM/ORIENTATION: Yes alert Skin: COMMON NORMALS: no rashes or lesions noted GENERAL SKIN EXAM: no rashes or lesions noted Data 08/17/24 09:02 08/17/24 14:28 A&P Assessment and plan (1) Chronic hyponatremia: Reviewed vitals, CBC, CMP. Sodium came up as high as 124, on recheck again down to 123. Discussed with family to increase sodium dose. Increase to 2 g twice daily. Monitor for risk of increasing blood pressure. Monitor for risk of rapid rise in sodium with risk of ODs. Recheck sodium requested Continue fluid restriction. Discussed with nursing, corrections caseworker. Possible SIADH. Noted mild improvement in sodium this morning up to 123, but again down to 121 on recheck on review this morning. Will add sodium chloride tablets. Continue regular diet. Chronic hyponatremia Patient euvolemic on exam TSH within normal limits Urine electrolytes ordered Discussed with corrections caseworker. (2) Homicidal ideation: Reviewed psychiatry note. Patient is under 96-hour hold with affidavit Reached out to psychiatrist. It appears patient may have indicated to [facility] outpatient clinic about not taking some of his medications (indicating that he thought one of his medications was laced with something). Reached out to psychiatrist. Psychiatry to evaluate, may need geriatric placement (3) Acute psychosis: As above (4) Paranoid schizophrenia: Continue home medications until psychiatry evaluates (5) Hypertension: Losartan. Monitor blood pressures. Plan DVT prophylaxis: Lovenox CODE STATUS: Assume full code Attestations 2 Medical Necessity Statement*: Continue admission for assessment and management of severe hyponatremia, homicidal ideation, psychosis with paranoid schizophrenia. Diagnoses Chronic hyponatremia E87.1 Homicidal ideation R45.850 Acute psychosis F23 Paranoid schizophrenia F20.0 Hypertension I10
[2024-08-17] MEDS: sodium chloride 1 gm Tablet 2 GM PO (17:29)
--- NOTE | 2024-08-17 18:05 | W.PM.NPUPNS ---
Subjective NPU Subjective: 69-year-old male currently in the ICU with a history of chronic sick schizophrenia with reports of increased disorganized behavior and disorganized thinking noted while residing at his intermediate in [place]. Patient had been compliant with his oral medications. The treatment team continue to work on attempting to find an appropriate geropsych facility at this time while attempting to bring the patient's sodium to normal limits. The patient had recognized the writer producer of this note and stated that he was doing better. He did report that he had court appointed guardianship but at other times would state that his sister was his legal guardian. The patient had expressed some interest in changing medications but remained unsure about what previous medications he had been on in the past. He had reported a history of dystonia but was unable to recall which medications in the past had made that problem worse. Mental Status Exam MSE Comments: Patient was lying in the hospital bed and appeared to be a healthy 69-year-old man who appeared his stated age. There was no evidence of any abnormal involuntary motor movements, tics, or tremors appreciated. He was alert and oriented to person, place, and time. His speech was regular in regards to volume with significant mumbling noted as he was difficult to understand. His gait was not tested. His mood was described as allright. His affect appeared less irritable today. His thought process was showed less derailment. His thought content showed evidence of paranoia and ideas of reference. Less focus on formication today. He did appear to be responding to internal stimuli while alone in his room. His recent remote memory were grossly intact. His insight is impaired. His judgment was poor. His impulse control appeared limited. Vitals/I&O/Wt Last Vital Signs Temp 98.5 F 08/17/24 12:00 Pulse 84 08/17/24 16:00 Resp 15 08/17/24 16:00 BP 126/80 08/17/24 16:00 Pulse Ox 99 08/17/24 16:00 O2 Del Method Room Air 08/17/24 16:00 08/17/24 08/17/24 08/17/24 06:59 14:59 22:59 Intake Total 100 / 760 1200 / 1200 300 / 1500 Output Total 600 / 2070 125 / 125 Balance -500 / -1310 1075 / 1075 300 / 1375 Weight last 48 hrs Weight 78.925 kg Weight 79 kg Weight 79 kg Weight 80.5 kg Data NPU 08/17/24 09:02 08/17/24 14:28 A&P Assessment and plan (1) Paranoid schizophrenia: (2) Acute psychosis: Plan 69-year-old male with schizophrenia currently in ICU with a history of hyponatremia with recent disorganized behavior currently under alleged guardianship. The patient would likely benefit from an acute inpatient psychiatric stay on a geropsychiatry unit. This will occur after he is stabilized and ready for transfer. 1. Continue Abilify 30mg daily and perphenazine 4mg bid. Hyponatremia has been associated with use of second generation atypical antipsychotics such as abilify. 2. Continue cogentin to .5mg bid. 3. Will continue to follow 4. Consider switch to another antipsychotic, will need to gather information from outpatient psychiatrist. Attestations NPU Medical Necessity Statement*: Continue to treat medically and then when stabilized transfer to geropsychiatry unit. Coding Level of Care Code Acute Code for [facility] Diagnoses Paranoid schizophrenia F20.0 Acute psychosis F23
--- NOTE | 2024-08-17 18:14 | PC.NURSE ---
Per Doctor Rinku Fortune was contacted to see who was the guardian making decisions for the patient and they stated that their paperwork stated that the patient was their own guardian and also they gave this nurse the sister's Sera Bueno number but neither phone number was in service.
[2024-08-17 20:04] LABS: Sodium 127 mmol/L (136-145)
[2024-08-18] VITALS (25 sets, daily range): BP systolic 105–149; BP diastolic 69–106; PULSE 71–117; RESP 12–31; TEMP 36.4–37.2; O2SAT 76–100
[2024-08-18] MEDS: enoxaparin 40 mg/0.4 mL Syringe SUBCUT (05:15)
[2024-08-18 05:17] LABS: Basophils # 0.1 10^3/uL (0.0-0.1); Basophils % 0.7 %; Eosinophils # 0.2 10^3/uL (0.0-0.8); Eosinophils % 2.2 %; Hematocrit 42.2 % (37-53); Lymphocytes # 1.6 10^3/uL (0.8-4.8); Lymphocytes % 23.8 %; Mean Corpuscular HGB Conc 34.1 g/dL (30-55); Mean Corpuscular Hemoglobin 30.6 pg (27-33); Mean Corpuscular Volume 89.6 fl (82-101); Mean Platelet Volume 9.2 fL (7.4-10.4); Monocytes # 0.9 10^3/uL (0.2-0.9); Monocytes % 12.3 %; Neutrophils # 4.17 10^3/uL (1.8-7.7); Neutrophils % 60.6 %; Nucleated Red Blood Cells % 0 %; Platelet Count 217 10^3/cmm (157-399); Red Blood Count 4.71 10^6/uL (3.85-5.65); Red Cell Distribution Width 13.5 % (12.1-15.1); White Blood Count 6.89 10^3/uL (3.29-11.43)
[2024-08-18 05:43] LABS: Blood Urea Nitrogen 6 mg/dL (8-23); Calcium 9.2 mg/dL (8.5-10.5); Carbon Dioxide 24 mmol/L (22-29); Chloride 94 mmol/L (98-107); Creatinine Clr Calc Pharmacy 92.4875; Glomerular Filtration Rate 165.4 mL/min (90-130); Glucose 125 mg/dL (65-115); Osmolality Calculated 267 mOsm/kg (285-295); Sodium 129 mmol/L (136-145)
[2024-08-18 05:51] LABS: Anion Gap 15.1 (5-19); Potassium 4.1 mmol/L (3.5-5.1)
[2024-08-18] MEDS: perphenazine 4 mg Tablet PO ×2 (08:22→17:34)
[2024-08-18] MEDS: ARIPiprazole 30 mg Tablet PO (08:22)
[2024-08-18] MEDS: losartan 50 mg Tablet PO (08:22)
[2024-08-18] MEDS: sodium chloride 1 gm Tablet 2 GM PO ×2 (08:22→17:35)
[2024-08-18] MEDS: benztropine 1 mg Tablet 0.5 MG PO ×2 (08:23→17:34)
[2024-08-18] MEDS: levETIRAcetam 500 mg Tablet 1250 MG PO ×2 (08:23→17:34)
--- NOTE | 2024-08-18 13:15 | P.NPUPN_ITS ---
Subjective NPU 2 Subjective: 69-year-old male currently in the ICU wi th a history of chronic schizophrenia with reports of increased disorganized behavior and disorganized thinking noted while residing at his longterm in [place]. Records were reviewed from an outpatient basis as the patient receives treatment at [facility]. He has been on Abilify and perphenazine in combination for at least 4 years. He continued to remain in the intensive care unit in efforts to normalize sodium levels in blood. The patient continued to have unusual thoughts but appeared redirectable. He had requested that he continue to remain on Abilify and perphenazine. He had reported having no thoughts of hurting himself or others. Mental Status Exam 2 MSE Comments: Patient was lying in the hospital bed and appeared to be a healthy 69-year-old man who appeared his stated age. There was no evidence of any abnormal involuntary motor movements, tics, or tremors appreciated. He was alert and oriented to person, place, and time. His speech was regular in regards to volume with significant mumbling noted as he was difficult to understand though less rambling speech was initiated. His gait was not tested. His mood was described as okay. His affect appeared less irritable though blunted. His thought process was more linear today. His thought content showed evidence of bizarre ideas but less somatically preoccupied. There was continued presence of delusions. His recent, remote ,memory were grossly intact. His insight is impaired. His judgment was poor. His impulse control appeared limited. Vitals/I&O/Wt Last Vital Signs Temp 97.6 F 08/18/24 08:00 Pulse 93 08/18/24 08:00 Resp 17 08/18/24 08:00 BP 134/79 08/18/24 09:00 Pulse Ox 100 08/18/24 08:00 O2 Del Method Room Air 08/18/24 08:00 08/17/24 08/18/24 08/18/24 22:59 06:59 14:59 Intake Total 300 / 1500 0 / 1500 500 / 500 Output Total 400 / 525 Balance -100 / 975 0 / 975 500 / 500 Weight last 48 hrs Weight 77.5 kg Weight 78.925 kg Data NPU 08/18/24 05:01 08/18/24 05:01 A&P Assessment and plan (1) Paranoid schizophrenia: (2) Acute psychosis: Plan 69-year-old male with schizophrenia currently in ICU with a history of hyponatremia with recent disorganized behavior currently under alleged guardianship. The patient would likely benefit from an acute inpatient psychiatric stay on a geropsychiatry unit. This will occur after he is stabilized and ready for transfer. 1. Continue Abilify 30mg daily and perphenazine 4mg bid. Hyponatremia has been associated with use of second generation atypical antipsychotics such as abilify. Patient's psychosis may be residual, will attempt to contact patient's mental health provider at [facility] before making any changes to antipsychotic medication given number of years patient has been on both of these medications. 2. Continue cogentin to .5mg bid. 3. Will continue to follow Attestations NPU 2 Medical Necessity Statement*: Continue to treat medically and then when stabilized medically recommend transfer to geropsychiatry unit. Coding Level of Care Code Acute Code for [facility] Diagnoses Paranoid schizophrenia F20.0 Acute psychosis F23
--- NOTE | 2024-08-18 14:18 | PC.NURSE ---
Yousif with [facility] out of [place] called. ([phone]). Touching base regarding this patient. They are considering accepting him as a patient, their physician will contact us on Tuesday for an update on sodium levels to determine if they will accept him. They do not have a confirmed bed at this time.
--- NOTE | 2024-08-18 14:37 | PM.PN ---
Subjective Subjective: He states he understands that he is to limit his water intake. Is asking for some ice chips. Vitals/I&O/Wt Last Vital Signs Temp 98.2 F 08/18/24 13:00 Pulse 84 08/18/24 13:00 Resp 21 H 08/18/24 13:00 BP 121/74 08/18/24 13:00 Pulse Ox 100 08/18/24 13:00 O2 Del Method Room Air 08/18/24 13:00 08/17/24 08/18/24 08/18/24 22:59 06:59 14:59 Intake Total 300 / 1500 0 / 1500 500 / 500 Output Total 400 / 525 Balance -100 / 975 0 / 975 500 / 500 Weight last 48 hrs Weight 77.5 kg Weight 78.925 kg Physical Exam Const: COMMON NORMALS: alert GENERAL APPEARANCE: cooperative ORIENTATION/CONSCIOUSNESS: Yes awake HENMT: COMMON NORMALS: oropharynx normal Neck/C-Spine: COMMON NORMALS: no JVD Resp: COMMON NORMALS: normal respiratory effort and clear to auscultation bilaterally AUSCULTATION: clear to auscultation bilaterally Cardio: COMMON NORMALS: no JVD, regular rhythm, S1 normal heart sound present, S2 normal heart sound present and No murmurs present (Cardio) RHYTHM: regular rhythm HEART SOUNDS: S1 normal heart sound present and S2 normal heart sound present GI: COMMON NORMALS: Normal to inspection, nondistended, normoactive bowel sounds present, Soft to palpation and non-tender PALPATION: Yes Soft to palpation Extremity: COMMON NORMALS: no joint enlargement and no pedal edema Neuro: COMMON NORMALS: moves all extremities SENSORIUM/ORIENTATION: Yes alert Skin: COMMON NORMALS: no rashes or lesions noted GENERAL SKIN EXAM: no rashes or lesions noted Data 08/18/24 05:01 08/18/24 05:01 A&P Assessment and plan (1) Chronic hyponatremia: Reviewed vitals, CBC, BMP. Sodium noted gradually improving up to 127, 129 this morning. Continue sodium chloride tablets. Reassess sodium level. Reassess for overly rapid sodium rise, risk of ODS. Continue fluid restriction. Regular diet. Discussed with nursing, registered nurse hh case manager. Possible SIADH. Noted mild improvement in sodium this morning up to 123, but again down to 121 on recheck on review this morning. Continue regular diet. Chronic hyponatremia Patient euvolemic on exam TSH within normal limits Urine electrolytes ordered Discussed with registered nurse hh case manager. (2) Homicidal ideation: Reviewed psychiatry documentation. GR 6 x-ray outside facility is to review of sodium levels on Tuesday, consider admission. Patient is under 96-hour hold with affidavit Reached out to psychiatrist. It appears patient may have indicated to [facility] outpatient clinic about not taking some of his medications (indicating that he thought one of his medications was laced with something). Reached out to psychiatrist. Psychiatry to evaluate, may need geriatric placement (3) Acute psychosis: As above (4) Paranoid schizophrenia: Continue home medications until psychiatry evaluates (5) Hypertension: Losartan. Monitor blood pressures. Plan DVT prophylaxis: Lovenox CODE STATUS: Assume full code Attestations Medical Necessity Statement*: Continue hospitalization for assessment and management of improving severe hyponatremia, acute psychosis, homicidal ideation. and High MDM includes number and complexity of problems actively addressed during encounter and described risk of complication, morbidity or mortality of management as documented Diagnoses Chronic hyponatremia E87.1 Homicidal ideation R45.850 Acute psychosis F23 Paranoid schizophrenia F20.0 Hypertension I10
[2024-08-18 16:49] LABS: Sodium 130 mmol/L (136-145)
--- NOTE | 2024-08-18 18:30 | PC.NURSE ---
Shift Summary: Uneventful shift. rested in bed for most of the day, but up frequently for the restroom. Oriented to person, place time, and sometimes situation. Frequently quietly talking to himself. APpears to have poor impulse control at time. [employer] form flores hagen is following - [phone]
[2024-08-19] VITALS (25 sets, daily range): BP systolic 96–133; BP diastolic 67–97; PULSE 73–112; RESP 12–22; TEMP 36.6–37; O2SAT 92–99
[2024-08-19 04:38] LABS: Basophils # 0.1 10^3/uL (0.0-0.1); Basophils % 0.8 %; Eosinophils # 0.2 10^3/uL (0.0-0.8); Eosinophils % 2.5 %; Hematocrit 41.2 % (37-53); Lymphocytes # 1.6 10^3/uL (0.8-4.8); Lymphocytes % 22.3 %; Mean Corpuscular HGB Conc 33.5 g/dL (30-55); Mean Corpuscular Hemoglobin 30.3 pg (27-33); Mean Corpuscular Volume 90.5 fl (82-101); Mean Platelet Volume 9.4 fL (7.4-10.4); Monocytes # 0.9 10^3/uL (0.2-0.9); Monocytes % 12.5 %; Neutrophils # 4.44 10^3/uL (1.8-7.7); Neutrophils % 61.2 %; Nucleated Red Blood Cells % 0 %; Platelet Count 203 10^3/cmm (157-399); Red Blood Count 4.55 10^6/uL (3.85-5.65); Red Cell Distribution Width 13.8 % (12.1-15.1); White Blood Count 7.26 10^3/uL (3.29-11.43)
[2024-08-19 05:04] LABS: Anion Gap 13.1 (5-19); Blood Urea Nitrogen 11 mg/dL (8-23); Calcium 9.1 mg/dL (8.5-10.5); Carbon Dioxide 28 mmol/L (22-29); Chloride 97 mmol/L (98-107); Glomerular Filtration Rate 165.4 mL/min (90-130); Glucose 110 mg/dL (65-115); Osmolality Calculated 278 mOsm/kg (285-295); Potassium 4.1 mmol/L (3.5-5.1); Sodium 134 mmol/L (136-145)
[2024-08-19] MEDS: enoxaparin 40 mg/0.4 mL Syringe SUBCUT (05:29)
[2024-08-19] MEDS: acetaminophen 325 mg Tablet 650 MG PO ×2 (06:39→17:15)
[2024-08-19] MEDS: ARIPiprazole 30 mg Tablet PO (08:05)
[2024-08-19] MEDS: losartan 50 mg Tablet PO (08:05)
[2024-08-19] MEDS: benztropine 1 mg Tablet 0.5 MG PO ×2 (08:08→17:15)
[2024-08-19] MEDS: levETIRAcetam 500 mg Tablet 1250 MG PO ×2 (08:08→17:14)
[2024-08-19] MEDS: perphenazine 4 mg Tablet PO ×2 (08:09→17:16)
[2024-08-19] MEDS: sodium chloride 1 gm Tablet 2 GM PO ×2 (08:09→17:16)
--- NOTE | 2024-08-19 15:43 | W.PM.NPUPNS ---
Subjective NPU Subjective: 69-year-old male currently in the ICU with a history of chronic schizophrenia with reports of increased disorganized behavior and disorganized thinking noted while residing at his assisted in [place]. Had a previous episode of hyponatremia that it caused acute mental status changes. The patient's hyponatremia appears to be resolving. Patient was able to take all his medications without difficulty on ICU. He had been reporting that his mood was okay and stated that he was feeling better on his current medication regimen. He had been pleasant and compliant on the milieu. He did not report any change in his hallucinations. Mental Status Exam MSE Comments: Patient was lying in the hospital bed and appeared to be a healthy 69-year-old man who appeared his stated age. There was no evidence of any abnormal involuntary motor movements, tics, or tremors appreciated. He was alert and oriented to person, place, and time. His speech was regular in regards to volume with significant mumbling noted with less rambling noted. His gait was not tested. His mood was described as good. His affect appeared less irritable though blunted. His thought process was more linear today. His thought content showed evidence of delusional thinking. His recent, remote ,memory were grossly intact. His insight is impaired. His judgment was poor. His impulse control appeared better. Vitals/I&O/Wt Last Vital Signs Temp 98.0 F 08/19/24 14:00 Pulse 81 08/19/24 14:00 Resp 15 08/19/24 14:00 BP 120/75 08/19/24 14:00 Pulse Ox 97 08/19/24 14:00 O2 Del Method Room Air 08/19/24 14:00 08/19/24 08/19/24 08/19/24 06:59 14:59 22:59 Intake Total 220 / 1240 240 / 240 Output Total 400 / 1005 Balance -180 / 235 240 / 240 Weight last 48 hrs Weight 78.968 kg Weight 77.5 kg Data NPU 08/19/24 04:23 08/19/24 04:23 A&P Assessment and plan (1) Paranoid schizophrenia: (2) Acute psychosis: Plan 69-year-old male with schizophrenia currently in ICU with a history of hyponatremia with recent disorganized behavior currently under alleged guardianship. Patient appears improved. He would likely benefit now from discharge back to [place] and closer monitoring from primary care physician regarding hyponatremia and possible use of routine salt tablet. I would eschew change in his psychotropic medications given his 10+ year history of relative stability on these two antipsychotics. 1. Continue Abilify 30mg daily and perphenazine 4mg bid. Hyponatremia has been associated with use of second generation atypical antipsychotics such as abilify. Patient's psychosis may be residual, will attempt to contact patient's mental health provider at [facility] before making any changes to antipsychotic medication given number of years patient has been on both of these medications. 2. Continue cogentin to .5mg bid. 3. Will continue to follow Attestations NPU Medical Necessity Statement*: Will follow until discharge. Patient once medically stabilized should be able to return to assisted. Coding Level of Care Code Acute Code for [facility] Diagnoses Paranoid schizophrenia F20.0 Acute psychosis F23
--- NOTE | 2024-08-19 18:11 | P.PN_ITS ---
Subjective 2 Subjective: He is feeling somewhat tired today, but denies any complaints. No discomfort, nausea, vomiting. Vitals/I&O/Wt Last Vital Signs Temp 97.8 F 08/19/24 17:00 Pulse 95 08/19/24 17:00 Resp 19 H 08/19/24 17:00 BP 111/68 08/19/24 17:00 Pulse Ox 98 08/19/24 17:00 O2 Del Method Room Air 08/19/24 17:00 08/19/24 08/19/24 08/19/24 06:59 14:59 22:59 Intake Total 220 / 1240 820 / 820 240 / 1060 Output Total 400 / 1005 Balance -180 / 235 820 / 820 240 / 1060 Weight last 48 hrs Weight 78.968 kg Weight 77.5 kg Physical Exam 2 Const: GENERAL APPEARANCE: cooperative ORIENTATION/CONSCIOUSNESS: Yes awake OTHER: Napping, wakes up to voice. HENMT: COMMON NORMALS: oropharynx normal Neck/C-Spine: COMMON NORMALS: no JVD Resp: COMMON NORMALS: normal respiratory effort and clear to auscultation bilaterally AUSCULTATION: clear to auscultation bilaterally Cardio: COMMON NORMALS: no JVD, regular rhythm, S1 normal heart sound present, S2 normal heart sound present and No murmurs present (Cardio) RHYTHM: regular rhythm HEART SOUNDS: S1 normal heart sound present and S2 normal heart sound present GI: COMMON NORMALS: Normal to inspection, nondistended, normoactive bowel sounds present, Soft to palpation and non-tender PALPATION: Yes Soft to palpation Extremity: COMMON NORMALS: no joint enlargement and no pedal edema Neuro: COMMON NORMALS: moves all extremities Skin: COMMON NORMALS: no rashes or lesions noted GENERAL SKIN EXAM: no rashes or lesions noted Data 08/19/24 04:23 08/19/24 04:23 A&P Assessment and plan (1) Chronic hyponatremia: Reviewed Na, up to 134. Has been gradually improving. Urine smallish pending. Urine sodium 75. TSH reviewed, normal. Cortisol was 12. Requesting cosyntropin stim test. As per discussion with psychiatrist as per their review he has been on his current psychiatric regimen for a long time and would like to maintain it if at all possible without changes. Given he appears overall euvolemic, if no hypocortisolemia is found, would suspect SIADH. So far has done well with sodium supplementation and fluid restriction. Recheck chemistry. In case sodium continues to rise, consider de- escalating supplementation to 1 g twice daily for continued maintenance. Will benefit from sodium follow-up after discharge and intermittent chronic sodium follow-up given history of recurrent and/for persistent hyponatremia. Reassess sodium level. Reassess for overly rapid sodium rise, risk of ODS. Continue fluid restriction. Regular diet. Discussed with nursing, business case analyst. Chronic hyponatremia Patient euvolemic on exam TSH within normal limits Urine electrolytes ordered (2) Homicidal ideation: Reviewed psychiatry documentation. Discussed with psychiatrist. So far he has been doing better. Psychiatry planning to further reassess with consideration of further steps, further pursuing geriatric psychiatric hospitalization versus possible return back to the facility currently resides at. Patient is under 96-hour hold with affidavit Reached out to psychiatrist. It appears patient may have indicated to [facility] outpatient clinic about not taking some of his medications (indicating that he thought one of his medications was laced with something). Reached out to psychiatrist. Psychiatry to evaluate, may need geriatric placement (3) Acute psychosis: As above (4) Paranoid schizophrenia: Continue home medications until psychiatry evaluates (5) Hypertension: Losartan. Monitor blood pressures. Plan DVT prophylaxis: Lovenox CODE STATUS: Assume full code Attestations 2 Medical Necessity Statement*: Continue hospitalization for assessment and management of improving severe hyponatremia, acute psychosis, homicidal ideation. Diagnoses Chronic hyponatremia E87.1 Homicidal ideation R45.850 Acute psychosis F23 Paranoid schizophrenia F20.0 Hypertension I10
[2024-08-19] MEDS: benzonatate 100 mg Capsule 200 MG PO (18:26)
--- NOTE | 2024-08-19 18:31 | PC.NURSE ---
Shift SUmary: uneventful shift. patient has rested in bed throughout the day. Walked around the unit before lunch, nurse stood by but no assistance needed. Alert and oriented, calm and cooperative. Sodium levels at 134 with morning labs. Nurse from [facility] states he has been very compliant with all meds at [facility].
--- NOTE | 2024-08-19 18:58 | XRR_ITS ---
PROCEDURE INFORMATION: Exam: XR Chest Exam date and time: 08/19/2024 7:33 PM Age: 69 years old Clinical indication: Prior surgery; Surgery date: 6+ months; Surgery type: Gb; Patient HX: C/O cough TECHNIQUE: Imaging protocol: Radiologic exam of the chest. Views: 1 view. COMPARISON: CR XR chest 1V portable [id number] 10/22/2023 3:16 PM FINDINGS: Lungs: Unremarkable. No consolidation. Pleural spaces: Unremarkable. No pleural effusion. No pneumothorax. Heart/Mediastinum: Unremarkable. No cardiomegaly. Bones/joints: Unremarkable. XR/XR chest 1V portable [id number] IMPRESSION: No acute findings.
[2024-08-19 19:58] LABS: Cosyntropin 30 Minute 4.74 mcg/dL
[2024-08-19 19:59] LABS: Cosyntropin Baseline 5.24 mcg/dL
[2024-08-19 20:49] LABS: Cosyntropin 1 Hour 4.35 mcg/dL
[2024-08-20] VITALS (17 sets, daily range): BP systolic 101–144; BP diastolic 65–94; PULSE 82–106; RESP 13–31; TEMP 36.4–37.1; O2SAT 95–100
[2024-08-20 04:36] LABS: Basophils # 0.1 10^3/uL (0.0-0.1); Basophils % 1.1 %; Eosinophils # 0.2 10^3/uL (0.0-0.8); Eosinophils % 3.6 %; Lymphocytes # 1.8 10^3/uL (0.8-4.8); Lymphocytes % 28.8 %; Mean Corpuscular HGB Conc 32.4 g/dL (30-55); Mean Corpuscular Hemoglobin 29.5 pg (27-33); Mean Corpuscular Volume 90.9 fl (82-101); Mean Platelet Volume 9.7 fL (7.4-10.4); Monocytes # 0.9 10^3/uL (0.2-0.9); Monocytes % 14.2 %; Neutrophils # 3.19 10^3/uL (1.8-7.7); Nucleated Red Blood Cells % 0 %; Platelet Count 221 10^3/cmm (157-399); Red Blood Count 4.51 10^6/uL (3.85-5.65); Red Cell Distribution Width 13.9 % (12.1-15.1); White Blood Count 6.14 10^3/uL (3.29-11.43)
[2024-08-20 04:53] LABS: Anion Gap 13.1 (5-19); Blood Urea Nitrogen 12 mg/dL (8-23); Carbon Dioxide 28 mmol/L (22-29); Chloride 99 mmol/L (98-107); Glomerular Filtration Rate 165.4 mL/min (90-130); Glucose 95 mg/dL (65-115); Osmolality Calculated 282 mOsm/kg (285-295); Potassium 4.1 mmol/L (3.5-5.1); Sodium 136 mmol/L (136-145)
[2024-08-20] MEDS: enoxaparin 40 mg/0.4 mL Syringe SUBCUT (05:17)
[2024-08-20] MEDS: ARIPiprazole 30 mg Tablet PO (09:34)
[2024-08-20] MEDS: levETIRAcetam 500 mg Tablet 1250 MG PO (09:34)
[2024-08-20] MEDS: benztropine 1 mg Tablet 0.5 MG PO (09:35)
[2024-08-20] MEDS: perphenazine 4 mg Tablet PO (09:36)
[2024-08-20] MEDS: losartan 50 mg Tablet PO (11:31)
[2024-08-20 11:32] LABS: Estmated Average Glucose 114; Hemoglobin A1C 5.6 % (4.0-6.0)
[2024-08-20 11:45] LABS: Chol HDL Ratio 2.51 mg/dL (1.0-5.00); Cholesterol 143 mg/dL (0-200); HDL Cholesterol 57 mg/dL (60-100); Iron 49 ug/dL (59-158); LDL Cholesterol Calculated 76 mg/dL (50-129); Percent Saturation 15.8 % (20-50); Total Iron Binding Capacity 310 mcg/dl; Triglycerides 50 mg/dL (0-150); Unsaturated Iron Binding 261 ug/dL (112-347); VLDL Cholestrol Calculation 10 mg/dL (0-30)
--- NOTE | 2024-08-20 11:56 | P.DS_ITS ---
Discharge Providers Date of Admission: 08/15/24 21:47 Date of Discharge: August 20, 2024 Attending Provider at Admission: Jesse Rodriguez MD Attending Provider at Discharge: Davidson Gutierrez MD Consults: Psychiatric: Dr. Holland Primary Care Provider: Mague Spence MD Diagnoses at Discharge Discharge Diagnosis (1) Chronic hyponatremia: Status: Acute (2) Homicidal ideation: Status: Acute (3) Acute psychosis: Status: Acute (4) Paranoid schizophrenia: Status: Chronic (5) Hypertension: Status: Acute Reason for Visit Reason for Visit: 96 HOUR HOLD Brief History: History as per HPI: Kory Summers is a 69 year old male with a past medical history significant for paranoid schizophrenia, hyponatremia, tobacco use disorder in remission, hypertension, seizure disorder, and multiple other comorbidities who presented emergency department with homicidal ideation. Patient is currently on 96-hour hold. He reportedly arrives with multiple affidavits regarding homicidal ideations. There is also concerns for reported hallucinations. Upon assessment, patient is awake and alert. He complains of chronic toe and feet pains. Denies fevers, chills, nausea or emesis. Symptoms of speech is incomprehensible at times. He is noted to be a very poor historian. In the emergency department, patient was found to have hyponatremia. He has a known history of chronic hyponatremia. ED attempted to place patient in geriatric psychiatric care however was unable to. ED provider Seth Jama reported Dr. Rodriguez had offered to accept the patient for hyponatremia workup if not placed. Patient was not placed and now presents for hyponatremia workup. Hospital Course Hospital Course Patient was admitted to the hospital further evaluation and management of homicidal ideation in setting of acute on chronic chronic hyponatremia leading to possible psychosis in setting of chronic paranoid schizophrenia. He was started on treatment for hyponatremia which was not responsive to IV 3% sodium resuscitation. There is a concern for SIADH in setting of chronic antipsychotic medications and she was started on fluid restriction along with oral salt tab lets after which his sodium levels gradually improved. Patient was seen by psychiatrist during hospitalization. As his sodium levels improved his mentation also improved. Patient's 96-hour hold was rescinded by psychiatric team as he continued to improve and seem to be back to his baseline mentation. Patient was recommended to be discharged back to [place] and close monitoring from PCP regarding hyponatremia as that seem to be playing a part in his psychosis. Has been discharged in hemodynamically stable condition on 1 g salt tablets twice daily. Advised to check sodium level within next 3 to 4 days. Physical Exam Narrative: General: No acute distress, AO x3 HEENT: PERRLA, pupils bilaterally equal and reactive Chest: Normal vesicular breath sounds, no added sounds, equal good air entry bilaterally CVS: S1-S2 regular, no murmurs, no tachycardia, no gallops, no rubs Abdomen: Soft, nontender, no organomegaly, bowel sounds present Neuro: No focal deficits, no facial deformity, AO x3, power 5/5 in all limbs Discharge Data Studies Completed and Pending Completed Studies During Hospitalization Category Date Time Status CXRP [XR chest 1V portable [id number]] Routine Exams 08/19/24 18:58 Completed Pending at discharge Category Date Time Status B12 [Vitamin B12] Routine Lab 08/20/24 03:57 Results Complete Blood Count w/Auto AM LABS Lab 08/21/24 04:00 Ordered Comprehensive Metabolic Panel AM LABS Lab 08/21/24 04:00 Ordered Folate Level AM LABS Lab 08/21/24 04:00 Ordered Lipid Profile w/VLDL Routine Lab 08/20/24 03:57 Results MAG [Magnesium] AM LABS Lab 08/21/24 04:00 Ordered MAG [Magnesium] AM LABS Lab 08/22/24 04:00 Ordered MAG [Magnesium] AM LABS Lab 08/23/24 04:00 Ordered Osmolality Urine Routine Lab 08/15/24 23:24 Received TIBC [Total Iron Binding Capacity] Routine Lab 08/20/24 03:57 Results Radiology Impressions Chest X-Ray 08/19/24 18:58 IMPRESSION: No acute findings. Laboratory Results WBC 6.14 10^3/uL (3.29-11.43) 08/20/24 03:57 RBC 4.51 10^6/uL (3.85-5.65) 08/20/24 03:57 Hgb 13.30 g/dL (11.27-16.99) 08/20/24 03:57 Hct 41.0 % (37-53) 08/20/24 03:57 MCV 90.9 fl (82-101) 08/20/24 03:57 MCH 29.5 pg (27-33) 08/20/24 03:57 MCHC 32.4 g/dL (30-55) 08/20/24 03:57 RDW 13.9 % (12.1-15.1) 08/20/24 03:57 Plt Count 221 10^3/cmm (157-399) 08/20/24 03:57 MPV 9.7 fL (7.4-10.4) 08/20/24 03:57 Neut % (Auto) 52.0 % 08/20/24 03:57 Lymph % (Auto) 28.8 % 08/20/24 03:57 [place] % (Auto) 14.2 % 08/20/24 03:57 Eos % (Auto) 3.6 % 08/20/24 03:57 Baso % (Auto) 1.1 % 08/20/24 03:57 Neut # (Auto) 3.19 10^3/uL (1.8-7.7) 08/20/24 03:57 Lymph # (Auto) 1.8 10^3/uL (0.8-4.8) 08/20/24 03:57 [place] # (Auto) 0.9 10^3/uL (0.2-0.9) 08/20/24 03:57 Eos # (Auto) 0.2 10^3/uL (0.0-0.8) 08/20/24 03:57 Baso # (Auto) 0.1 10^3/uL (0.0-0.1) 08/20/24 03:57 Nucleated RBC % (auto) 0 % 08/20/24 03:57 Nucleated RBCs # 0.0 /100WBC 08/20/24 03:57 Sodium 136 mmol/L (136-145) 08/20/24 03:57 Potassium 4.1 mmol/L (3.5-5.1) 08/20/24 03:57 Chloride 99 mmol/L (98-107) 08/20/24 03:57 Carbon Dioxide 28 mmol/L (22-29) 08/20/24 03:57 Anion Gap 13.1 (5-19) 08/20/24 03:57 BUN 12 mg/dL (8-23) 08/20/24 03:57 Creatinine 0.5 mg/dL (0.7-1.2) L 08/20/24 03:57 GFR Calculation 165.4 mL/min (90-130) H 08/20/24 03:57 Glucose 95 mg/dL (65-115) 08/20/24 03:57 Estimat Average Glucose 114 08/20/24 03:57 Hemoglobin A1c 5.6 % (4.0-6.0) 08/20/24 03:57 Calculated Osmolality 282 mOsm/kg (285-295) L 08/20/24 03:57 Calcium 9.0 mg/dL (8.5-10.5) 08/20/24 03:57 Phosphorus 2.8 mg/dL (2.5-4.5) 08/16/24 03:27 Magnesium 1.9 mg/dL (1.7-2.3) 08/16/24 03:27 Iron 49 ug/dL (59-158) L 08/20/24 03:57 TIBC 310 mcg/dl 08/20/24 03:57 % Saturation 15.8 % (20-50) L 08/20/24 03:57 Unsat Iron Binding 261 ug/dL (112-347) 08/20/24 03:57 Total Bilirubin 0.5 mg/dL (0.15-1.2) 08/16/24 03:27 AST 49 U/L (0-40) H 08/16/24 03:27 ALT 24 U/L (0-41) 08/16/24 03:27 Alkaline Phosphatase 102 U/L (40-130) 08/16/24 03:27 Total Protein 7.2 g/dL (6.6-8.7) 08/16/24 03:27 Albumin 4.1 g/dL (3.5-5.2) 08/16/24 03:27 Globulin 3.1 g/dL (1.3-4.6) 08/16/24 03:27 Triglycerides 50 mg/dL (0-150) 08/20/24 03:57 Cholesterol 143 mg/dL (0-200) 08/20/24 03:57 LDL Cholesterol, Calc 76 mg/dL (50-129) 08/20/24 03:57 Total VLDL Cholesterol 10 mg/dL (0-30) 08/20/24 03:57 HDL Cholesterol 57 mg/dL (60-100) L 08/20/24 03:57 Cholesterol/HDL Ratio 2.51 mg/dL (1.0-5.00) 08/20/24 03:57 TSH 1.96 uIU/mL (0.27-4.20) 08/15/24 14:43 Random Cortisol 12.02 ug/dL (2.47-19.5) 08/16/24 03:27 Cortisol Response 08/19/24 18:52 Urine Color Yellow (Yellow) 08/15/24 16:13 Urine Appearance Clear (CLEAR) 08/15/24 16:13 Urine pH 7.5 (5-7) 08/15/24 16:13 Ur Specific [place] 1.007 (1.005-1.030) 08/15/24 16:13 Urine Protein Negative (Negative) 08/15/24 16:13 Urine Glucose (UA) Negative (Normal) 08/15/24 16:13 Urine Ketones Negative (Negative) 08/15/24 16:13 Urine Blood Negative (Negative) 08/15/24 16:13 Urine Nitrate Negative (Negative) 08/15/24 16:13 Urine Bilirubin Negative (Negative) 08/15/24 16:13 Urine Urobilinogen 1.0 mg/dL (Negative) 08/15/24 16:13 Ur Leukocyte Esterase Negative (Negative) 08/15/24 16:13 Urine RBC 0-2 /hpf (0-2) 08/15/24 16:13 Urine WBC 0-5 /hpf (0-5) 08/15/24 16:13 Ur Squamous Epith Cells 0-5 /hpf (0-5) 08/15/24 16:13 Amorphous Sediment Not Reportable 08/15/24 16:13 Urine Bacteria None seen /hpf (NONE) 08/15/24 16:13 Hyaline Casts 0-4 /lpf H 08/15/24 16:13 Ur Random Sodium 75 mmol/L 08/16/24 00:30 Ur Random Potassium 13 mmol/L 08/16/24 00:30 Ur Random Chloride 59 mmol/L 08/16/24 00:30 Salicylates 0.6 mg/dL (3-10) L 08/15/24 14:43 Urine Opiates Screen Negative ng/mL (Negative) 08/15/24 16:13 Acetaminophen < 5.0 ug/mL (10-30) L 08/15/24 14:43 Ur Barbiturates Screen Negative ng/mL (Negative) 08/15/24 16:13 Ur Phencyclidine Scrn Negative ng/mL (Negative) 08/15/24 16:13 Ur Amphetamines Screen Negative ng/mL (Negative) 08/15/24 16:13 U Benzodiazepines Scrn Negative ng/mL (Negative) 08/15/24 16:13 Urine Cocaine Screen Negative ng/mL (Negative) 08/15/24 16:13 U Marijuana (THC) Screen Negative ng/mL (Negative) 08/15/24 16:13 Ethyl Alcohol < 10 mg/dL (0-10) 08/15/24 14:43 Coronavirus (PCR) Negative (Negative) 08/15/24 14:10 Influenza A (PCR) Negative (Negative) 08/15/24 14:10 Influenza Type B (PCR) Negative (Negative) 08/15/24 14:10 RSV (PCR) Negative (Negative) 08/15/24 14:10 Vitals Last Vital Signs Temp 98.7 F 08/20/24 08:00 Pulse 99 08/20/24 09:00 Resp 17 08/20/24 09:00 BP 132/81 08/20/24 11:31 Pulse Ox 99 08/20/24 09:00 O2 Del Method Room Air 08/20/24 09:00 Discharge Plan Discharge Patient Disposition: Home Condition: Stable Prescriptions: New sodium chloride 1,000 mg Tablet,Soluble 1,000 mg PO BID Qty: 60 0RF cyanocobalamin (vitamin B-12) 3,000 mcg capsule 3,000 mcg PO DAILY Qty: 30 0RF Continued acetaminophen [Tylenol] 325 mg tablet 325 - 650 mg PO Q4H PRN (Reason: Pain) levetiracetam [Keppra] 1,000 mg tablet 1,000 mg PO BID levetiracetam [Keppra] 250 mg tablet 250 mg PO BID benztropine 0.5 mg tablet 0.5 mg PO DAILY Qty: 30 6RF perphenazine 4 mg tablet 4 mg PO BID Qty: 60 6RF Rx Instructions: Take one tablet twice per day losartan 50 mg tablet 50 mg PO DAILY Discontinued lisinopril 5 mg tablet 5 mg PO DAILY Qty: 30 0RF Discharge Orders: Discharge Order (Routine); Ordered 08/20/24 Ordered By: Davidson Gutierrez Referrals: Mague Spence MD [Primary Care Provider] - Discharge Diet: Regular Discharge Activity: Resume usual activity and Increase activity as tolerated Patient Instructions: Opioid Safety Activity Restrictions/Additional Instructions: Recheck sodium level in 3-4 days Follow up with pcp and c in one week Discharge Attestations Time Spent in Discharge Care*: greater than 30 min Specific Discharge Activities: educating patient, discussing with pcp/other providers, discussing with case management rn/social workers/dc planners, documenting/other paperwork and evaluating patient/reviewing data Status at Discharge: Cognitive status at discharge: mildly impaired cognition , Behavioral status at discharge: cooperative , Functional status at discharge: independent ambulation , Overall status at discharge: patient is back to baseline Quality Metrics Clinical Quality Measures [ No reported AMI, CVA or VTE this stay] Coding Level of Care Code 94416 Total time (in minutes) for Discharge: 70 Diagnoses Chronic hyponatremia E87.1 Homicidal ideation R45.850 Acute psychosis F23 Paranoid schizophrenia F20.0 Hypertension I10
[2024-08-20 11:59] LABS: Vitamin B12 182 pg/mL (232-1245)
--- NOTE | 2024-08-20 14:33 | PC.NURSE ---
1432 patient in care of ready transport in route to [facility]. Report called to [facility].
--- NOTE | 2024-08-20 14:37 | PC.SOCIAL ---
IMM UPDATED IMM dated and initialed, copy given to patient and copy placed in chart.
[2024-08-20 15:55] LABS: Osmolality Urine 228 mOsm/kg (50-1200)
== END 2024-08-20 14:35 | disposition home or self-care (01) | DRG 641 ==
LOC: ER 21:39 → ICU 21:48
PROVIDERS: Emergency Medicine; Internal Medicine; Admitting Provider Family Medicine; Emergency Provider Physician Assistant; PCP Family Medicine; Visit Provider Student in an Organized Health Care Education/Training Program
DX: E87.1 Hypo-osmolality and hyponatremia (principal); F20.0 Paranoid schizophrenia; E22.2 Syndrome of inappropriate secretion of antidiuretic hormone; R45.850 Homicidal ideations; I10 Essential (primary) hypertension; G40.909 Epilepsy, unspecified, not intractable, without status epilepticus; R05.9 Cough, unspecified
CPT/HCPCS: 0241U; 36415; 71045; 80048; 80053; 80061; 80306; 80307; 81001; 82436; 82533; 82607; 83036; 83540; 83550; 83735; 83935; 84100; 84133; 84295; 84300; 84443; 85025; 93005; 96372; 99285; J1650; J7030; Q0175

== ENCOUNTER → 2024-09-27 15:35 | Outpatient (BNVA) | payer OTHER, SELFPAY ==
[2024-08-24 10:24] VITALS: BP 127/89; BMI 25.5
== END ==
PROVIDERS: PCP Family Medicine; Visit Provider Nurse Practitioner Psychiatric/Mental Health
DX: Z79.899 Other long term (current) drug therapy (principal)
CPT/HCPCS: 80053

== ENCOUNTER 2024-10-10 16:13 | Observation (INO) | payer MEDICARE, MEDICAID, SELFPAY ==
[2024-08-24 10:24] VITALS: BP 127/89; BMI 25.5
[2024-10-10] VITALS (8 sets, daily range): BP systolic 139–163; BP diastolic 58–86; PULSE 71–88; RESP 16–20; TEMP 36.4–36.6; O2SAT 97–100; BMI 26.4
--- NOTE | 2024-10-10 16:20 | CTR_ITS ---
PROCEDURE INFORMATION: Exam: CT Head Without Contrast Exam date and time: 10/10/2024 4:37 PM Age: 69 years old Clinical indication: Altered mental status/memory loss; Confusion or disorientation; Additional info: AMS TECHNIQUE: Imaging protocol: Computed tomography of the head without contrast. Radiation optimization: All CT scans at this facility use at least one of these dose optimization techniques: automated exposure control; mA and/or kV adjustment per patient size (includes targeted exams where dose is matched to clinical indication); or iterative reconstruction. COMPARISON: AL bone scan whole body* [id number] 03/25/2021 10:21 AM RADIATION DOSE METRICS: Total DLP (mGy-cm): 1164.08 FINDINGS: Brain: No hemorrhage. Diffuse periventricular white matter disease. No mass effect. No collections. Age related volume loss. Cerebral ventricles: No ventriculomegaly. Paranasal sinuses: No significant air-fluid levels noted in the visualized sinuses. Mastoid air cells: Mastoid air cells are aerated with no effusions. Bones: No acute osseous abnormality. Soft tissues: Unremarkable. CT/CT head wo con* [id number] IMPRESSION: No acute intracranial abnormality.
--- NOTE | 2024-10-10 16:20 | XRR_ITS ---
PROCEDURE INFORMATION: Exam: XR Chest Exam date and time: 10/10/2024 4:27 PM Age: 69 years old Clinical indication: Other: AMS evaluation TECHNIQUE: Imaging protocol: Radiologic exam of the chest. Views: 1 view. COMPARISON: CR XR chest 1V portable [id number] 08/19/2024 7:33 PM FINDINGS: Lungs: Emphysematous changes. Pleural spaces: No pleural effusion or pneumothorax noted. Heart/Mediastinum: There is no cardiomegaly. Bones/joints: No acute osseous abnormality. Intraperitoneal space: There is no free intraperitoneal gas. XR/XR chest 1V portable [id number] IMPRESSION: No acute findings.
--- NOTE | 2024-10-10 16:25 | ECG_ITS ---
[facility] Date: 2024-10-10 Pat Name: Kory Summers Department: Room: Gender: Male Tabber: : 1955 Requested By: Mary Juarez Order Number: [id number] Reading MD: NING MALIN Measurements Intervals [place] Rate: 82 P: 68 OK: 183 QRS: 80 QRSD: 94 T: 74 QT: 371 QTc: 436 Interpretive Statements SINUS RHYTHM Compared to ECG 08/15/2024 15:06:52 No significant changes Electronically Signed On 10-12-2024 23:29:11 [employer] by NING MALIN [email or web address]
--- NOTE | 2024-10-10 16:31 | ED_ITS ---
HPI - Skin/Abscess/Foreign Bdy 2 General: Chief complaint: Skin/Abscess/Foreign Body Stated complaint: AMS Time Seen by Provider: 10/10/24 16:18 Source: patient and EMS Mode of arrival: EMS Limitations: no limitations History of Present Illness: 69-year-old male is sent here from [facility] due to concern he had some slight confusion. Patient here is answer my questions appropriately he does have a history of paranoid schizophrenia they are concerned he may have a low sodium to try to get his blood drawn today at the nursing but was unable to so sent him here. He has no complaints at this time he has had a rash is being treated for eczema. Associated symptoms: Deny chills, fever(s), nausea or vomiting Related Data Home Medications Medication Instructions Recorded Confirmed levetiracetam 1,000 mg tablet 1,000 mg PO BID 12/04/19 10/10/24 (Keppra) levetiracetam 250 mg tablet 250 mg PO BID 12/04/19 10/10/24 (Keppra) acetaminophen 500 mg tablet 1,000 mg PO Q6H PRN Y 10/10/24 10/10/24 (Tylenol Extra Strength) albuterol sulfate 90 mcg/actuation 2 puff inhalation Q6H PRN 10/10/24 10/10/24 aerosol inhaler (Ventolin HFA) Shortness Of Breath Or Wheezing diphenhydramine HCl 25 mg tablet 25 mg PO TID PRN Itching 10/10/24 10/10/24 (Banophen) lisinopril 5 mg tablet 5 mg PO DAILY 10/10/24 10/10/24 sodium chloride 0.65 % nasal spray 1 spray intranasal QID PRN Nasal 10/10/24 10/10/24 aerosol (Deep Sea Nasal) Congestion triamcinolone acetonide 0.5 % 1 applic topical BID PRN Skin 10/10/24 10/10/24 topical ointment Irritation Previous Rx's Medication Instructions Recorded benztropine 0.5 mg tablet 0.5 mg PO DAILY #30 tabs 07/30/24 sodium chloride 1,000 mg soluble 1,000 mg PO BID #60 tabs 08/20/24 tablet prednisone 10 mg tablet 10 mg PO DAILY #7 tabs 10/08/24 aripiprazole 20 mg tablet (Abilify) 20 mg PO .morning #30 tabs 10/10/24 perphenazine 8 mg tablet 8 mg PO BID #60 tabs 10/10/24 Allergies Allergy/AdvReac Type Severity Reaction Status Date / Time Penicillins Allergy Severe Unknown Verified 10/08/24 16:32 raspberry Allergy Severe ADR-Vomitin Verified 10/08/24 16:32 g Review of Systems 2 Const: Denies: fever(s), chills, body aches or change in appetite ENMT: Denies: throat pain or dental pain Card: Denies: chest pain Resp: Denies: dyspnea GI: Denies: abdominal pain, nausea, vomiting or diarrhea Musc: Denies: neck pain or back pain Skin/Breast: Reports: rash Neuro: Denies: headache(s) PFSH ED 2 PFSH: Medical History Psychiatric care Paranoid schizophrenia Family History Grandfather Cancer CAD (coronary artery disease) Hypertension Mother Cancer Other Paranoid schizophrenia Social History Smoking and tobacco/nicotine status: former use of tobacco/nicotine Quit status (tobacco/nicotine): has quit using Year quit tobacco: 2010 Second hand smoke exposure: No Alcohol intake: former Year of sobriety/quit date alcohol: 1987 Former alcohol use details: beer mixed with wine and whiskey Substance/Drug Use: former Date of last use: went to [employer] parties in the Adopted: No Caregiver/support person: Yes ([place]) Lives independently: No Household members: other Details: [place] assisted living facility Housing: Assisted Living Facility Marital status: Single Number of children: 0 Highest education level completed: High School Graduate service: No Current occupational status: disabled Current occupational exposures/hazards: No Pets and animals: Yes Pets & animals: cat(s) and dog(s) Pets & animal details: dog hangs around Leisure activites: reading and other Leisure activities details: read jokes, walking, plays lottery tickets Sexually active: No Do you think of yourself as: Straight/Heterosexual Current gender identity: Male Sherrill/Temple: Zoroastrianism Special sherrill needs: No Agree to transfusion: Yes Physical Exam 2 Const: COMMON NORMALS: no acute distress, patient oriented x3 and healthy appearing HENMT: COMMON NORMALS: normocephalic and atraumatic HEAD & SCALP: n ormocephalic and atraumatic Neck/C-Spine: COMMON NORMALS: full ROM and supple Chest: COMMONS NORMALS: normal inspection of the chest Resp: COMMON NORMALS: normal respiratory effort, No retractions, No use of accessory muscles and clear to auscultation bilaterally AUSCULTATION: clear to auscultation bilaterally Cardio: COMMON NORMALS: regular rate, regular rhythm and No murmurs present (Cardio) RATE: regular rate RHYTHM: regular rhythm GI: COMMON NORMALS: Normal to inspection, nondistended, normoactive bowel sounds present, Soft to palpation, non-tender and no masses PALPATION: Yes Soft to palpation Extremity: COMMON NORMALS: normal to inspection and full ROM Neuro: COMMON NORMALS: patient oriented x3, moves all extremities and no focal motor deficits Psych: COMMON NORMALS: mental status grossly normal, Normal thought process present and cooperative THOUGHT PROCESS: Normal thought process present Skin: COMMON NORMALS: no wounds Course 2 Vital Signs: Vital signs: Vital Signs Temperature 97.9 F 10/10/24 16:20 Pulse Rate 87 10/10/24 17:55 Respiratory Rate 18 10/10/24 17:55 Blood Pressure 147/58 10/10/24 17:55 Pulse Oximetry 99 10/10/24 17:55 Oxygen Delivery Me thod Room Air 10/10/24 17:55 MDM - Skin/Abscess/Foreign Bdy Medicial Decision Making Patient presents here with some confusion he is hyponatremic here he answers most my questions appropriately does have a rash as well no signs of infection patient stable for discharge. Medical Records I reviewed the patient's medical records. Lab Data I reviewed the patient's lab results. 10/10/24 16:56 10/10/24 16:56 Radiology Impressions Chest X-Ray 10/10/24 16:20 IMPRESSION: No acute findings. Head CT 10/10/24 16:20 IMPRESSION: No acute intracranial abnormality. Laboratory Results WBC 6.59 10^3/uL (3.29-11.43) 10/10/24 16:56 RBC 4.12 10^6/uL (3.85-5.65) 10/10/24 16:56 Hgb 12.10 g/dL (11.27-16.99) 10/10/24 16:56 Hct 35.1 % (37-53) L 10/10/24 16:56 MCV 85.2 fl (82-101) 10/10/24 16:56 MCH 29.4 pg (27-33) 10/10/24 16:56 MCHC 34.5 g/dL (30-55) 10/10/24 16:56 RDW 12.6 % (12.1-15.1) 10/10/24 16:56 Plt Count 167 10^3/cmm (157-399) 10/10/24 16:56 MPV 9.7 fL (7.4-10.4) 10/10/24 16:56 Neut % (Auto) 63.0 % 10/10/24 16:56 Lymph % (Auto) 21.5 % 10/10/24 16:56 [place] % (Auto) 10.6 % 10/10/24 16:56 Eos % (Auto) 3.8 % 10/10/24 16:56 Baso % (Auto) 0.8 % 10/10/24 16:56 Neut # (Auto) 4.15 10^3/uL (1.8-7.7) 10/10/24 16:56 Lymph # (Auto) 1.4 10^3/uL (0.8-4.8) 10/10/24 16:56 [place] # (Auto) 0.7 10^3/uL (0.2-0.9) 10/10/24 16:56 Eos # (Auto) 0.3 10^3/uL (0.0-0.8) 10/10/24 16:56 Baso # (Auto) 0.1 10^3/uL (0.0-0.1) 10/10/24 16:56 Nucleated RBC % (auto) 0 % 10/10/24 16:56 Nucleated RBCs # 0.0 /100WBC 10/10/24 16:56 Sodium 123 mmol/L (136-145) L 10/10/24 16:56 Potassium 3.9 mmol/L (3.5-5.1) 10/10/24 16:56 Chloride 88 mmol/L (98-107) L 10/10/24 16:56 Carbon Dioxide 24 mmol/L (22-29) 10/10/24 16:56 Anion Gap 14.9 (5-19) 10/10/24 16:56 BUN 7 mg/dL (8-23) L 10/10/24 16:56 Creatinine 0.4 mg/dL (0.7-1.2) L 10/10/24 16:56 GFR Calculation 213.9 mL/min (90-130) H 10/10/24 16:56 Glucose 121 mg/dL (65-115) H 10/10/24 16:56 POC Glucose 129 mg/dL (70-110) H 10/10/24 16:34 Calculated Osmolality 255 mOsm/kg (285-295) L 10/10/24 16:56 Calcium 8.5 mg/dL (8.5-10.5) 10/10/24 16:56 Magnesium 1.8 mg/dL (1.7-2.3) 10/10/24 16:56 Total Bilirubin 0.4 mg/dL (0.15-1.2) 10/10/24 16:56 AST 47 U/L (0-40) H 10/10/24 16:56 ALT 20 U/L (0-41) 10/10/24 16:56 Alkaline Phosphatase 100 U/L (40-130) 10/10/24 16:56 Ammonia 35 umol/L (16-60) 10/10/24 16:56 Total Protein 7.0 g/dL (6.6-8.7) 10/10/24 16:56 Albumin 4.1 g/dL (3.5-5.2) 10/10/24 16:56 Globulin 2.9 g/dL (1.3-4.6) 10/10/24 16:56 TSH 1.63 uIU/mL (0.27-4.20) 10/10/24 16:56 Urine Color Yellow (Yellow) 10/10/24 Unknown Urine Appearance Clear (CLEAR) 10/10/24 Unknown Urine pH 7.5 (5-7) 10/10/24 Unknown Ur Specific [place] 1.008 (1.005-1.030) 10/10/24 Unknown Urine Protein Negative (Negative) 10/10/24 Unknown Urine Glucose (UA) Negative (Normal) 10/10/24 Unknown Urine Ketones Negative (Negative) 10/10/24 Unknown Urine Blood Negative (Negative) 10/10/24 Unknown Urine Nitrate Negative (Negative) 10/10/24 Unknown Urine Bilirubin Negative (Negative) 10/10/24 Unknown Urine Urobilinogen 0.2 mg/dL (Negative) 10/10/24 Unknown Ur Leukocyte Esterase Negative (Negative) 10/10/24 Unknown Urine RBC 0-2 /hpf (0-2) 10/10/24 Unknown Urine WBC 0-5 /hpf (0-5) 10/10/24 Unknown Ur Squamous Epith Cells 0-5 /hpf (0-5) 10/10/24 Unknown Urine Bacteria None seen /hpf (NONE) 10/10/24 Unknown Hyaline Casts 0-4 /lpf H 10/10/24 Unknown All radiology interpretation(s) finalized by discharge EKG Data EKG 1: I personally reviewed and interpreted this EKG as follows: EKG Interpretation Date: 10/10/24 EKG interpretation time: 16:25 Interpretation: nsr hr [address] elevation qrs 94 qtc 410 Discharge Plan Discharge Patient Disposition: Admitted As Inpatient Clinical Impression: Hyponatremia, Confusion Condition: Stable Coding 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
[2024-10-10 16:38] LABS: Glucose Point of Care 129 mg/dL (70-110)
[2024-10-10 17:06] LABS: Basophils # 0.1 10^3/uL (0.0-0.1); Basophils % 0.8 %; Eosinophils # 0.3 10^3/uL (0.0-0.8); Eosinophils % 3.8 %; Hematocrit 35.1 % (37-53); Lymphocytes # 1.4 10^3/uL (0.8-4.8); Lymphocytes % 21.5 %; Mean Corpuscular HGB Conc 34.5 g/dL (30-55); Mean Corpuscular Hemoglobin 29.4 pg (27-33); Mean Corpuscular Volume 85.2 fl (82-101); Mean Platelet Volume 9.7 fL (7.4-10.4); Monocytes # 0.7 10^3/uL (0.2-0.9); Monocytes % 10.6 %; Neutrophils # 4.15 10^3/uL (1.8-7.7); Nucleated Red Blood Cells % 0 %; Platelet Count 167 10^3/cmm (157-399); Red Blood Count 4.12 10^6/uL (3.85-5.65); Red Cell Distribution Width 12.6 % (12.1-15.1); White Blood Count 6.59 10^3/uL (3.29-11.43)
[2024-10-10 17:27] LABS: Ammonia 35 umol/L (16-60)
[2024-10-10 17:40] LABS: Alanine Aminotransferase 20 U/L (0-41); Albumin Level 4.1 g/dL (3.5-5.2); Alkaline Phosphatase 100 U/L (40-130); Anion Gap 14.9 (5-19); Aspartate Amino Transferase 47 U/L (0-40); Blood Urea Nitrogen 7 mg/dL (8-23); Calcium 8.5 mg/dL (8.5-10.5); Carbon Dioxide 24 mmol/L (22-29); Chloride 88 mmol/L (98-107); Creatinine Clr Calc Pharmacy 96.4805; Globulin 2.9 g/dL (1.3-4.6); Glomerular Filtration Rate 213.9 mL/min (90-130); Glucose 121 mg/dL (65-115); Magnesium 1.8 mg/dL (1.7-2.3); Osmolality Calculated 255 mOsm/kg (285-295); Potassium 3.9 mmol/L (3.5-5.1); Sodium 123 mmol/L (136-145); Thyroid Stimulating Hormone 1.63 uIU/mL (0.27-4.20); Total Bilirubin 0.4 mg/dL (0.15-1.2)
[2024-10-10 18:20] LABS: Bilirubin Urine Negative (Negative); Blood Urine Negative (Negative); Glucose Urine UA Negative (Normal); Ketones Urine Negative (Negative); Leukocyte Esterase Urine Negative (Negative); Nitrate Urine Negative (Negative); Protein Urine Negative (Negative); Specific Gravity, Urine 1.008 (1.005-1.030); Urine Appearance Clear (CLEAR); Urine Color Yellow (Yellow); Urobilinogen Urine 0.2 mg/dL (Negative); pH Urine 7.5 (5-7)
[2024-10-10 18:31] LABS: UA Slide Review UA Slide Review Perf
[2024-10-10] MEDS: sodium chloride 0.9% 1,000 ML 999 ML IV (18:35)
--- NOTE | 2024-10-10 18:36 | P.HP_ITS ---
Providers/Chief Complaint 2 Primary Care Provider: Mague Spence MD Chief Complaint: AMS History of Present Illness Kory Summers is a 69 year old male with a past medical history of paranoid schizophrenia, hyponatremia chronic, down to 122, hypertension, who presents [facility] ER for a rash on bilateral arms, chest, back. There was also concerns for confusion. Currently patient is alert to person, to place, not to time he follows all commands he is actually standing up to side of the bed peeing into urinal when I examined him, denies any weakness, no falls, no nausea, no vomiting, no abdominal pain. 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 Denies any headache, no blurry vision, no nausea, no vomiting, no blurry vision. Denies any dysuria. No fevers no cough. For his rash, he reports its pruritic, he thinks he got into [place], as he likes to walk outside Review of Systems 2 Const: Denies: fever(s) Eyes: Denies: change in vision Card: Denies: chest pain Resp: Denies: dyspnea : Denies: flank pain Medications/Allergies Home Medications Medication Instructions Recorded Confirmed Last Taken Type levetiracetam 1,000 mg tablet 1,000 mg PO BID 12/04/19 10/10/24 10/10/24 History (Keppra) levetiracetam 250 mg tablet 250 mg PO BID 12/04/19 10/10/24 10/10/24 History (Keppra) benztropine 0.5 mg tablet 0.5 mg PO DAILY #30 tabs 07/30/24 10/10/24 10/10/24 Rx sodium chloride 1,000 mg soluble 1,000 mg PO BID #60 tabs 08/20/24 10/10/24 10/10/24 Rx tablet prednisone 10 mg tablet 10 mg PO DAILY #7 tabs 10/08/24 10/10/24 10/10/24 Rx acetaminophen 500 mg tablet 1,000 mg PO Q6H PRN Y 10/10/24 10/10/24 Unknown History (Tylenol Extra Strength) albuterol sulfate 90 mcg/actuation 2 puff inhalation Q6H PRN 10/10/24 10/10/24 Unknown History aerosol inhaler (Ventolin HFA) Shortness Of Breath Or Wheezing aripiprazole 20 mg tablet (Abilify) 20 mg PO .morning #30 tabs 10/10/24 10/10/24 10/10/24 Rx diphenhydramine HCl 25 mg tablet 25 mg PO TID PRN Itching 10/10/24 10/10/24 Unknown History (Banophen) lisinopril 5 mg tablet 5 mg PO DAILY 10/10/24 10/10/24 10/10/24 History perphenazine 8 mg tablet 8 mg PO BID #60 tabs 10/10/24 10/10/24 10/10/24 Rx sodium chloride 0.65 % nasal spray 1 spray intranasal QID PRN Nasal 10/10/24 10/10/24 Unknown History aerosol (Deep Sea Nasal) Congestion triamcinolone acetonide 0.5 % 1 applic topical BID PRN Skin 10/10/24 10/10/24 Unknown History topical ointment Irritation Allergies Allergy/AdvReac Type Severity Reaction Status Date / Time Penicillins Allergy Severe Unknown Verified 10/08/24 16:32 raspberry Allergy Severe ADR-Vomitin Verified 10/08/24 16:32 g PFSH Acute 2 PFSH: Medical History Psychiatric care Paranoid schizophrenia Family History Grandfather Cancer CAD (coronary artery disease) Hypertension Mother Cancer Other Paranoid schizophrenia Social History Smoking and tobacco/nicotine status: former use of tobacco/nicotine Quit status (tobacco/nicotine): has quit using Year quit tobacco: 2010 Second hand smoke exposure: No Alcohol intake: former Year of sobriety/quit date alcohol: 1987 Former alcohol use details: beer mixed with wine and whiskey Substance/Drug Use: former Date of last use: went to pot parties in the s Adopted: No Caregiver/support person: Yes ([place]) Lives independently: No Household members: other Details: [facility] assisted living facility Housing: Assisted Living Facility Marital status: Single Number of children: 0 Highest education level completed: High School Graduate service: No Current occupational status: disabled Current occupational exposures/hazards: No Pets and animals: Yes Pets & animals: cat(s) and dog(s) Pets & animal details: dog hangs around Leisure activites: reading and other Leisure activities details: read jokes, walking, plays lottery tickets Sexually active: No Do you think of yourself as: Straight/Heterosexual Current gender identity: Male Sherrill/Anabaptist: Adventism Special sherrill needs: No Agree to transfusion: Yes Vitals/I&O/Wt Last Vital Signs Temp 97.9 F 10/10/24 16:20 Pulse 87 10/10/24 17:55 Resp 18 10/10/24 17:55 BP 147/58 10/10/24 17:55 Pulse Ox 99 10/10/24 17:55 O2 Del Method Room Air 10/10/24 17:55 Weight last 48 hrs Weight 83.461 kg Physical Exam 2 Const: COMMON NORMALS: no acute distress and patient oriented x3 HENMT: COMMON NORMALS: normocephalic HEAD & SCALP: normocephalic Eye: COMMON NORMALS: Equal, round and reactive pupils present and EOMs intact bilaterally Neck/C-Spine: COMMON NORMALS: no JVD Resp: COMMON NORMALS: normal respiratory effort, No retractions, No use of accessory muscles and clear to auscultation bilaterally AUSCULTATION: clear to auscultation bilaterally Cardio: COMMON NORMALS: regular rate, regular rhythm, S1 normal heart sound present and S2 normal heart sound present RATE: regular rate RHYTHM: r egular rhythm HEART SOUNDS: S1 normal heart sound present and S2 normal heart sound present GI: COMMON NORMALS: Normal to inspection, nondistended, normoactive bowel sounds present, Soft to palpation and non-tender Extremity: COMMON NORMALS: no calf tenderness and no pedal edema Neuro: COMMON NORMALS: patient oriented x3, CN's II-XII intact bilaterally and moves all extremities Psych: COMMON NORMALS: mental status grossly normal Skin: NARRATIVE SKIN EXAM: Macular, papular over abdomen, back, with satellite lesions, some uniform A rash over bilateral arms, uniform, erythematous nonblanching Data 10/10/24 16:56 10/10/24 16:56 A&P Assessment and plan (1) Chronic hyponatremia: (2) Paranoid schizophrenia: (3) Acute psychosis: (4) Rash: (5) AMS (altered mental status): Plan Rash -Etiology unclear -Isolation precautions, contact -Solu-Medrol -Monitor closely on Chronic hyponatremia -Continue salt tablets -Monitor serum sodium - likely combination of SIADH, psychotropic medications -Neurochecks,nih stroke scale, aspiration precautions, seizure precautions History of paranoid schizophrenia continue home medications Attestations 2 Medical Necessity Statement*: Altered mental status, hyponatremia, rash outpatient observation Diagnoses Chronic hyponatremia E87.1 Paranoid schizophrenia F20.0 Acute psychosis F23 Rash R21 AMS (altered mental status) R41.82
[2024-10-10 18:43] LABS: Add Urine Microscopic? YES; Bacteria Urine None Seen /hpf; Hyaline Casts Urine 0-4 /lpf; RBC Urine 0-2 /hpf (0-2); Squamous Epithelial Cell Urine 0-5 /hpf (0-5); WBC Urine 0-5 /hpf (0-5)
--- NOTE | 2024-10-10 19:38 | PC.NURSE ---
ATTEMPTED TO CALL REPORT TO MS AT 1938, NO ANSWER FROM NURSE.
[2024-10-10] MEDS: methylPREDNISolone sod succ 125 mg/2 mL INJ IVP (21:14)
[2024-10-10] MEDS: sodium chloride 1 gm Tablet PO (21:14)
[2024-10-10] MEDS: pantoprazole 40 mg SDV IVP (21:15)
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
[2024-10-10 22:09] LABS: Anion Gap 15.8 (5-19); Blood Urea Nitrogen 5 mg/dL (8-23); Calcium 8.5 mg/dL (8.5-10.5); Carbon Dioxide 24 mmol/L (22-29); Chloride 87 mmol/L (98-107); Chol HDL Ratio 2.08 mg/dL (1.0-5.00); Cholesterol 125 mg/dL (0-200); Glomerular Filtration Rate 213.9 mL/min (90-130); Glucose 101 mg/dL (65-115); HDL Cholesterol 60 mg/dL (60-100); LDL Cholesterol Calculated 57 mg/dL (50-129); LDL HDL Ratio 0.95 RATIO (0.00-3.22); Osmolality Calculated 253 mOsm/kg (285-295); Potassium 3.8 mmol/L (3.5-5.1); Sodium 123 mmol/L (136-145); Thyroid Stimulating Hormone 1.87 uIU/mL (0.27-4.20); Triglycerides 39 mg/dL (0-150)
[2024-10-10 22:29] LABS: Estmated Average Glucose 114; Hemoglobin A1C 5.6 % (4.0-6.0)
[2024-10-10] MEDS: levETIRAcetam 500 mg Tablet 1250 MG PO (23:13)
[2024-10-10] MEDS: perphenazine 4 mg Tablet 8 MG PO (23:14)
[2024-10-11] VITALS (9 sets, daily range): BP systolic 116–152; BP diastolic 64–81; PULSE 74–106; RESP 16–20; TEMP 36.3–36.8; O2SAT 98–100
[2024-10-11 06:30] LABS: Basophils % 0.4 %; Hematocrit 37.7 % (37-53); Lymphocytes # 0.5 10^3/uL (0.8-4.8); Lymphocytes % 16.8 %; Mean Corpuscular HGB Conc 34.5 g/dL (30-55); Mean Corpuscular Hemoglobin 29.2 pg (27-33); Mean Corpuscular Volume 84.7 fl (82-101); Mean Platelet Volume 10.2 fL (7.4-10.4); Monocytes % 1.4 %; Neutrophils # 2.26 10^3/uL (1.8-7.7); Nucleated Red Blood Cells % 0 %; Platelet Count 172 10^3/cmm (157-399); Red Blood Count 4.45 10^6/uL (3.85-5.65); Red Cell Distribution Width 12.6 % (12.1-15.1); White Blood Count 2.79 10^3/uL (3.29-11.43)
[2024-10-11 06:49] LABS: Anion Gap 16.6 (5-19); Blood Urea Nitrogen 4 mg/dL (8-23); Carbon Dioxide 25 mmol/L (22-29); Chloride 85 mmol/L (98-107); Glomerular Filtration Rate 213.9 mL/min (90-130); Glucose 146 mg/dL (65-115); Osmolality Calculated 256 mOsm/kg (285-295); Potassium 3.6 mmol/L (3.5-5.1); Sodium 123 mmol/L (136-145)
[2024-10-11] MEDS: perphenazine 4 mg Tablet 8 MG PO ×2 (08:37→17:04)
[2024-10-11] MEDS: sodium chloride 1 gm Tablet 2 GM PO ×2 (08:37→17:04)
[2024-10-11] MEDS: levETIRAcetam 500 mg Tablet 1250 MG PO ×2 (08:37→17:04)
[2024-10-11] MEDS: ARIPiprazole 10 mg Tablet 30 MG PO (08:37)
[2024-10-11] MEDS: benztropine 1 mg Tablet 0.5 MG PO (08:38)
[2024-10-11] MEDS: lisinopril 5 mg Tablet PO (08:38)
[2024-10-11] MEDS: predniSONE 20 mg Tablet 40 MG PO (09:22)
--- NOTE | 2024-10-11 09:51 | P.CONIM_ITS ---
Providers/Reason For Consult 2 Consulting Physician/Specialty*: farhan sanches md/ telenephrology Reason for Consult*: hyponatremia Requesting Physician: Dr Celena Rodriguez Attending Physician: Jesse Rodriguez MD Primary Care Provider: Mague Spence MD History of Present Illness History of Present Illness Kory Summers is a 69 year old male History of schizophrenia chronic hyponatremia hypertension. Patient presented with rash and arm edema and confusion. Patient was found to habe a serum na of 123 and renal was asked to see the patient. Patient is confused and unable to give a history. Review of Systems 2 Narrative: confused, rasj, arm edema Medications/Allergies Home Medications Medication Instructions Recorded Confirmed Last Taken Type levetiracetam 1,000 mg tablet 1,000 mg PO BID 12/04/19 10/10/24 10/10/24 History (Keppra) levetiracetam 250 mg tablet 250 mg PO BID 12/04/19 10/10/24 10/10/24 History (Keppra) benztropine 0.5 mg tablet 0.5 mg PO DAILY #30 tabs 07/30/24 10/10/24 10/10/24 Rx sodium chloride 1,000 mg soluble 1,000 mg PO BID #60 tabs 08/20/24 10/10/24 10/10/24 Rx tablet prednisone 10 mg tablet 10 mg PO DAILY #7 tabs 10/08/24 10/10/24 10/10/24 Rx acetaminophen 500 mg tablet 1,000 mg PO Q6H PRN Y 10/10/24 10/10/24 Unknown History (Tylenol Extra Strength) albuterol sulfate 90 mcg/actuation 2 puff inhalation Q6H PRN 10/10/24 10/10/24 Unknown History aerosol inhaler (Ventolin HFA) Shortness Of Breath Or Wheezing aripiprazole 20 mg tablet (Abilify) 20 mg PO .morning #30 tabs 10/10/24 10/10/24 10/10/24 Rx diphenhydramine HCl 25 mg tablet 25 mg PO TID PRN Itching 10/10/24 10/10/24 Unknown History (Banophen) lisinopril 5 mg tablet 5 mg PO DAILY 10/10/24 10/10/24 10/10/24 History perphenazine 8 mg tablet 8 mg PO BID #60 tabs 10/10/24 10/10/24 10/10/24 Rx sodium chloride 0.65 % nasal spray 1 spray intranasal QID PRN Nasal 10/10/24 10/10/24 Unknown History aerosol (Deep Sea Nasal) Congestion triamcinolone acetonide 0.5 % 1 applic topical BID PRN Skin 10/10/24 10/10/24 Unknown History topical ointment Irritation Allergies Allergy/AdvReac Type Severity Reaction Status Date / Time Penicillins Allergy Severe Unknown Verified 10/08/24 16:32 raspberry Allergy Severe ADR-Vomitin Verified 10/08/24 16:32 g bee venom protein (honey bee) Allergy Unknown Verified 10/11/24 00:20 Current Medications Generic Name Dose Route Start Last Admin Trade Name Freq PRN Reason Stop Dose Admin Aripiprazole 30 mg 10/11/24 09:00 10/11/24 08:37 Aripiprazole 10 Mg Tablet PO 30 mg DAILY EDMUND Administration Benztropine Mesylate 0.5 mg 10/11/24 09:00 10/11/24 08:38 Benztropine 1 Mg Tablet PO 0.5 mg DAILY EDMUND Administration Levetiracetam 1,250 mg 10/10/24 22:15 10/11/24 08:37 Levetiracetam 500 Mg Tablet PO 1,250 mg BID EDMUND Administration Lisinopril 5 mg 10/11/24 09:00 10/11/24 08:38 Lisinopril 5 Mg Tablet PO 5 mg DAILY EDMUND Administration Pantoprazole Sodium 40 mg 10/10/24 20:58 10/10/24 21:15 Pantoprazole 40 Mg Sdv IVP 40 mg Q24H EDMUND Administration Perphenazine 8 mg 10/10/24 22:15 10/11/24 08:37 Perphenazine 4 Mg Tablet PO 8 mg BID EDMUND Administration Prednisone 40 mg 10/11/24 09:10 10/11/24 09:22 Prednisone 20 Mg Tablet PO 40 mg DAILY EDMUND Administration Sodium Chloride 2 gm 10/11/24 09:00 10/11/24 08:37 Sodium Chloride 1 Gm Tablet PO 2 gm BID EDMUND Administration PFSH Acute 2 PFSH: Medical History Psychiatric care Paranoid schizophrenia Family History Grandfather Cancer CAD (coronary artery disease) Hypertension Mother Cancer Other Paranoid schizophrenia Social History Smoking and tobacco/nicotine status: former use of tobacco/nicotine Quit status (tobacco/nicotine): has quit using Year quit tobacco: 2010 Second hand smoke exposure: No Alcohol intake: former Year of sobriety/quit date alcohol: 1987 Former alcohol use details: beer mixed with wine and whiskey Substance/Drug Use: former Date of last use: went to [employer] in the Adopted: No Caregiver/support person: Yes ([place]) Lives independently: No Household members: other Details: [facility] assisted living facility Housing: Assisted Living Facility Marital status: Single Number of children: 0 Highest education level completed: High School Graduate service: No Current occupational status: disabled Current occupational exposures/hazards: No Pets and animals: Yes Pets & animals: cat(s) and dog(s) Pets & animal details: dog hangs around Leisure activites: reading and other Leisure activities details: read jokes, walking, plays [employer] tickets Sexually active: No Do you think of yourself as: Straight/Heterosexual Current gender identity: Male Sherrill/Pentecostalism: Denominational Special sherrill needs: No Agree to transfusion: Yes Vitals/I&O/Wt Last Vital Signs Temp 97.6 F 10/11/24 08:00 Pulse 98 10/11/24 08:00 Resp 18 10/11/24 08:00 BP 152/77 10/11/24 08:00 Pulse Ox 100 10/11/24 08:00 O2 Del Method Room Air 10/11/24 08:00 10/10/24 10/11/24 10/11/24 22:59 06:59 14:59 Intake Total 0 / 0 1000 / 1000 480 / 480 Balance 0 / 0 1000 / 1000 480 / 480 Weight last 48 hrs Weight 82.1 kg Weight 83.416 kg Weight 83.461 kg Physical Exam 2 Narrative: Patient is confused sitting up in bed. No apparent distress. Vital signs noted. HEENT normocephalic atraumatic. Neck is supple. Lungs clear to auscultation bilaterally. Heart regular no rubs or gallops. Abdomen soft positive bowel sounds. Extremities no edema in his legs. He does have a rash with edema on his arms. Neuro confused. Data 10/11/24 05:45 10/11/24 05:45 A&P Assessment and plan (1) Hyponatremia: 69-year-old gentleman with hyponatremia. His serum sodium is 123 2 weeks ago was 125 July his sodium was as low as 119 and improved to 136 while in the hospital. Previously urine sodium was 75. Patient has waxing waning hyponatremia. At this time He has a low urine specific gravity. Will free water restrict the patient. Will send urine electrolytes. Will add urea tablets. On fortunately his confusion is unlikely caused by his hyponatremia but the hyponatremia is not helping. psychiatric meds can cause hyponatremia anbd SIAD -head CT normal cxr w/ empysema- no masses noted The patient was seen and examined with the aid of A/V equipment and a nurse helping. Case was discussed in detail with Dr. Dooley. Will follow the patient along with you. Consult Attestations 2 Time Spent in Patient Care: Greater than 35 minutes (>than 50% of time spent in counselling and/or direct pt care on unit) . Coding Level of Care Code Acute Code for Chg Fwd Diagnoses Hyponatremia E87.1
[2024-10-11] MEDS: urea 15 gm Powder PO (10:44)
[2024-10-11 10:55] LABS: Uric Acid 3.8 mg/dL (3.4-7.0)
[2024-10-11 11:35] LABS: Potassium, Radom Urine 30 mmol/L; Urine Creatinine 48 mg/dL (39-259); Urine Random Chloride 55 mmol/L; Urine Random Sodium 65 mmol/L
[2024-10-11 12:17] LABS: Anion Gap 16.9 (5-19); Blood Urea Nitrogen 16 mg/dL (8-23); Calcium 9.3 mg/dL (8.5-10.5); Carbon Dioxide 25 mmol/L (22-29); Chloride 85 mmol/L (98-107); Glomerular Filtration Rate 165.4 mL/min (90-130); Glucose 117 mg/dL (65-115); Osmolality Calculated 258 mOsm/kg (285-295); Potassium 3.9 mmol/L (3.5-5.1); Sodium 123 mmol/L (136-145)
--- NOTE | 2024-10-11 13:46 | P.PN_ITS ---
Subjective 2 Subjective: Patient was seen this morning, he tells me he drinks a lot of water, he likes water he likes ice cubes, during my discussion with him, he had consumed about 400 mL of fluid discussed his fluid restrictions at 1000 cc, that includes all juices jellies and ice cubes, I am thinking that this is a likely cause behind his hyponatremia he is alert to person, to place, not to time he can follow all commands no denies any headache, no blurry vision, at times is difficult to make out what he is saying, but it seems as if he understands what I am telling him, he does have difficulty understanding why he needs to be on fluid restrictions Vitals/I&O/Wt Last Vital Signs Temp 97.6 F 10/11/24 11:50 Pulse 74 10/11/24 13:12 Resp 18 10/11/24 11:50 BP 116/69 10/11/24 11:50 Pulse Ox 100 10/11/24 11:50 O2 Del Method Room Air 10/11/24 11:50 10/10/24 10/11/24 10/11/24 22:59 06:59 14:59 Intake Total 0 / 0 1000 / 1000 600 / 600 Output Total 400 / 400 Balance 0 / 0 1000 / 1000 200 / 200 Weight last 48 hrs Weight 82.1 kg Weight 83.416 kg Weight 83.461 kg Physical Exam 2 Const: COMMON NORMALS: no acute distress ORIENTATION/CONSCIOUSNESS: Yes awake, Yes oriented to person and Yes oriented to place; not oriented to time Resp: COMMON NORMALS: normal respiratory effort, No retractions, No use of accessory muscles and clear to auscultation bilaterally AUSCULTATION: clear to auscultation bilaterally Cardio: COMMON NORMALS: regular rate, regular rhythm, S1 normal heart sound present and S2 normal heart sound present RATE: regular rate RHYTHM: r egular rhythm HEART SOUNDS: S1 normal heart sound present and S2 normal heart sound present GI: COMMON NORMALS: Normal to inspection, nondistended, normoactive bowel sounds present and non-tender Extremity: COMMON NORMALS: capillary refill normal and no pedal edema Neuro: SENSORIUM/ORIENTATION: Yes oriented to person, Yes oriented to place and No oriented to time Psych: COMMON NORMALS: mental status grossly normal Data 10/11/24 05:45 10/11/24 11:52 A&P Assessment and plan (1) Chronic hyponatremia: (2) Paranoid schizophrenia: (3) Acute psychosis: (4) Rash: (5) AMS (altered mental status): Plan Rash -Etiology unclear -Isolation precautions, contact -Solu-Medrol, followed by prednisone 40 mg daily -Monitor closely on Chronic hyponatremia, 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
[2024-10-11] MEDS: sodium bicarbonate 150 MEQ in sodium chloride 0.45% 1,000 ML 100 MEQ IV ×2 (14:27→22:32)
[2024-10-11 18:21] LABS: Blood Urea Nitrogen 14 mg/dL (8-23); Calcium 8.4 mg/dL (8.5-10.5); Carbon Dioxide 24 mmol/L (22-29); Chloride 94 mmol/L (98-107); Glomerular Filtration Rate 165.4 mL/min (90-130); Glucose 171 mg/dL (65-115); Osmolality Calculated 271 mOsm/kg (285-295); Sodium 128 mmol/L (136-145)
[2024-10-11] MEDS: pantoprazole 40 mg SDV IVP (19:41)
[2024-10-11] MEDS: phenol oral Spray 177 mL 3 SPRAY MUCOUS MEM (22:27)
[2024-10-11] MEDS: diphenhydrAMINE 25 mg Capsule PO (22:27)
[2024-10-12] MEDS: phenol oral Spray 177 mL 3 SPRAY MUCOUS MEM ×2 (01:00→03:18)
[2024-10-12 01:38] LABS: Blood Urea Nitrogen 14 mg/dL (8-23); Calcium 8.9 mg/dL (8.5-10.5); Carbon Dioxide 28 mmol/L (22-29); Chloride 92 mmol/L (98-107); Glomerular Filtration Rate 165.4 mL/min (90-130); Glucose 105 mg/dL (65-115); Osmolality Calculated 269 mOsm/kg (285-295); Sodium 129 mmol/L (136-145)
[2024-10-12 04:00] VITALS: BP 116/75; PULSE 76; RESP 18; TEMP 36.4; O2SAT 99
[2024-10-12 04:49] VITALS: PULSE 87
[2024-10-12 06:50] LABS: Basophils % 0.2 %; Eosinophils # 0.1 10^3/uL (0.0-0.8); Eosinophils % 1.2 %; Hematocrit 35.5 % (37-53); Lymphocytes % 18.8 %; Mean Corpuscular HGB Conc 33.2 g/dL (30-55); Mean Corpuscular Hemoglobin 29.6 pg (27-33); Monocytes % 9.8 %; Neutrophils # 7.31 10^3/uL (1.8-7.7); Neutrophils % 69.7 %; Nucleated Red Blood Cells % 0 %; Platelet Count 143 10^3/cmm (157-399); Red Blood Count 3.99 10^6/uL (3.85-5.65); Red Cell Distribution Width 12.9 % (12.1-15.1); White Blood Count 10.49 10^3/uL (3.29-11.43)
[2024-10-12 07:02] LABS: Blood Urea Nitrogen 12 mg/dL (8-23); Calcium 8.9 mg/dL (8.5-10.5); Carbon Dioxide 27 mmol/L (22-29); Chloride 92 mmol/L (98-107); Creatinine Clr Calc Pharmacy 96.7755; Glomerular Filtration Rate 165.4 mL/min (90-130); Glucose 96 mg/dL (65-115); Magnesium 1.9 mg/dL (1.7-2.3); Osmolality Calculated 268 mOsm/kg (285-295); Phosphorus 2.4 mg/dL (2.5-4.5); Sodium 129 mmol/L (136-145)
[2024-10-12 07:21] LABS: Anion Gap 13.9 (5-19); Potassium 3.9 mmol/L (3.5-5.1)
[2024-10-12 08:00] VITALS: BP 121/76; PULSE 78; RESP 14; TEMP 37.1; O2SAT 96
[2024-10-12] MEDS: levETIRAcetam 500 mg Tablet 1250 MG PO (08:17)
[2024-10-12] MEDS: benztropine 1 mg Tablet 0.5 MG PO (08:17)
[2024-10-12] MEDS: predniSONE 20 mg Tablet 40 MG PO (08:17)
[2024-10-12] MEDS: perphenazine 4 mg Tablet 8 MG PO (08:17)
[2024-10-12] MEDS: sodium chloride 1 gm Tablet PO (08:17)
[2024-10-12] MEDS: ARIPiprazole 10 mg Tablet 30 MG PO (08:17)
[2024-10-12] MEDS: lisinopril 5 mg Tablet PO (08:18)
--- NOTE | 2024-10-12 09:51 | P.DS_ITS ---
Discharge Providers Date of Admission: 10/10/24 18:33 Date of Discharge: October 12, 2024 Attending Provider at Admission: Jesse Rodriguez MD Attending Provider at Discharge: Jesse Rodriguez MD Primary Care Provider: Mague Spence MD Diagnoses at Discharge Discharge Diagnosis (1) Chronic hyponatremia: Status: Acute (2) Paranoid schizophrenia: Status: Chronic (3) Acute psychosis: Status: Resolved (4) Rash: Status: Acute (5) AMS (altered mental status): Status: Resolved Reason for Visit Reason for Visit: AMS Hospital Course Hospital Course Kory Summers is a 69 year old male with a past medical history of paranoid schizophrenia, hyponatremia chronic, down to 122, hypertension, who presents [facility] ER for a rash on bilateral arms, chest, back. There was also concerns for confusion. Currently patient is alert to person, to place, not to time he follows all commands he is actually standing up to side of the bed peeing into urinal when I examined him, denies any weakness, no falls, no nausea, no vomiting, no abdominal pain. 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 Denies any headache, no blurry vision, no nausea, no vomiting, no blurry vision. Denies any dysuria. No fevers no cough. For his rash, he reports its pruritic, he thinks he got into [place], as he likes to walk outside Patient was admitted to 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, this is likely component -Had a detailed discussion with him about restricting fluid intake to a liter of fluid a day -Salt tablets -He is alert oriented x 3, following all commands, serum sodium on discharge 129, no headache, blurry vision, no seizure-like episodes asymptomatic Rash, discharged with prednisone therapy Physical Exam Const: COMMON NORMALS: no acute distress and patient oriented x3 Resp: COMMON NORMALS: normal respiratory effort, No retractions, No use of accessory muscles and clear to auscultation bilaterally AUSCULTATION: clear to auscultation bilaterally Cardio: COMMON NORMALS: regular rate, regular rhythm, S1 normal heart sound present and S2 normal heart sound present RATE: regular rate RHYTHM: regular rhythm HEART SOUNDS: S1 normal heart sound present and S2 normal heart sound present GI: COMMON NORMALS: Normal to inspection, nondistended, normoactive bowel sounds present and non-tender Extremity: COMMON NORMALS: no pedal edema Neuro: COMMON NORMALS: patient oriented x3 Psych: COMMON NORMALS: mental status grossly normal Discharge Data Studies Completed and Pending Completed Studies During Hospitalization Category Date Time Status CT head wo con* [id number] Stat Cat Scan 10/10/24 16:20 Completed XR chest 1V portable [id number] Stat Exams 10/10/24 16:20 Completed Pending at discharge Category Date Time Status Basic Metabolic Panel AM LABS Lab 10/13/24 04:00 Ordered Complete Blood Count w/Auto AM LABS Lab 10/13/24 04:00 Ordered Magnesium AM LABS Lab 10/13/24 04:00 Ordered Magnesium AM LABS Lab 10/14/24 04:00 Ordered Phosphorus AM LABS Lab 10/13/24 04:00 Ordered Phosphorus AM LABS Lab 10/14/24 04:00 Ordered Radiology Impressions Chest X-Ray 10/10/24 16:20 IMPRESSION: No acute findings. Head CT 10/10/24 16:20 IMPRESSION: No acute intracranial abnormality. Laboratory Results WBC 10.49 10^3/uL (3.29-11.43) 10/12/24 06:21 RBC 3.99 10^6/uL (3.85-5.65) 10/12/24 06:21 Hgb 11.80 g/dL (11.27-16.99) 10/12/24 06:21 Hct 35.5 % (37-53) L 10/12/24 06:21 MCV 89.0 fl (82-101) 10/12/24 06:21 MCH 29.6 pg (27-33) 10/12/24 06:21 MCHC 33.2 g/dL (30-55) 10/12/24 06:21 RDW 12.9 % (12.1-15.1) 10/12/24 06:21 Plt Count 143 10^3/cmm (157-399) L 10/12/24 06:21 MPV 11.0 fL (7.4-10.4) H 10/12/24 06:21 Neut % (Auto) 69.7 % 10/12/24 06:21 Lymph % (Auto) 18.8 % 10/12/24 06:21 [place] % (Auto) 9.8 % 10/12/24 06:21 Eos % (Auto) 1.2 % 10/12/24 06:21 Baso % (Auto) 0.2 % 10/12/24 06:21 Neut # (Auto) 7.31 10^3/uL (1.8-7.7) 10/12/24 06:21 Lymph # (Auto) 2.0 10^3/uL (0.8-4.8) 10/12/24 06:21 [place] # (Auto) 1.0 10^3/uL (0.2-0.9) H 10/12/24 06:21 Eos # (Auto) 0.1 10^3/uL (0.0-0.8) 10/12/24 06:21 Baso # (Auto) 0.0 10^3/uL (0.0-0.1) 10/12/24 06:21 Nucleated RBC % (auto) 0 % 10/12/24 06:21 Nucleated RBCs # 0.0 /100WBC 10/12/24 06:21 Sodium 129 mmol/L (136-145) L 10/12/24 06:21 Potassium 3.9 mmol/L (3.5-5.1) 10/12/24 06:21 Chloride 92 mmol/L (98-107) L 10/12/24 06:21 Carbon Dioxide 27 mmol/L (22-29) 10/12/24 06:21 Anion Gap 13.9 (5-19) 10/12/24 06:21 BUN 12 mg/dL (8-23) 10/12/24 06:21 Creatinine 0.5 mg/dL (0.7-1.2) L 10/12/24 06:21 GFR Calculation 165.4 mL/min (90-130) H 10/12/24 06:21 Glucose 96 mg/dL (65-115) 10/12/24 06:21 POC Glucose 129 mg/dL (70-110) H 10/10/24 16:34 Estimat Average Glucose 114 10/10/24 21:26 Hemoglobin A1c 5.6 % (4.0-6.0) 10/10/24 21:26 Calculated Osmolality 268 mOsm/kg (285-295) L 10/12/24 06:21 Uric Acid 3.8 mg/dL (3.4-7.0) 10/11/24 05:45 Calcium 8.9 mg/dL (8.5-10.5) 10/12/24 06:21 Phosphorus 2.4 mg/dL (2.5-4.5) L 10/12/24 06:21 Magnesium 1.9 mg/dL (1.7-2.3) 10/12/24 06:21 Total Bilirubin 0.4 mg/dL (0.15-1.2) 10/10/24 16:56 AST 47 U/L (0-40) H 10/10/24 16:56 ALT 20 U/L (0-41) 10/10/24 16:56 Alkaline Phosphatase 100 U/L (40-130) 10/10/24 16:56 Ammonia 35 umol/L (16-60) 10/10/24 16:56 Total Protein 7.0 g/dL (6.6-8.7) 10/10/24 16:56 Albumin 4.1 g/dL (3.5-5.2) 10/10/24 16:56 Globulin 2.9 g/dL (1.3-4.6) 10/10/24 16:56 Triglycerides 39 mg/dL (0-150) 10/10/24 21: Cholesterol 125 mg/dL (0-200) 10/10/24 21: LDL Cholesterol, Calc 57 mg/dL (50-129) 10/10/24: HDL Cholesterol 60 mg/dL (60-100) 10/10/24 21: LDL/HDL Ratio 0.95 RATIO (0.00-3.22) 10/10/24: Cholesterol/HDL Ratio 2.08 mg/dL (1.0-5.00) 10/10/24: TSH 1.87 uIU/mL (0.27-4.20) 10/10/24 21: Urine Color Yellow (Yellow) 10/10/24 Unknown Urine Appearance Clear (CLEAR) 10/10/24 Unknown Urine pH 7.5 (5-7) 10/10/24 Unknown Ur Specific [place] 1.008 (1.005-1.030) 10/10/24 Unknown Urine Protein Negative (Negative) 10/10/24 Unknown Urine Glucose (UA) Negative (Normal) 10/10/24 Unknown Urine Ketones Negative (Negative) 10/10/24 Unknown Urine Blood Negative (Negative) 10/10/24 Unknown Urine Nitrate Negative (Negative) 10/10/24 Unknown Urine Bilirubin Negative (Negative) 10/10/24 Unknown Urine Urobilinogen 0.2 mg/dL (Negative) 10/10/24 Unknown Ur Leukocyte Esterase Negative (Negative) 10/10/24 Unknown Urine RBC 0-2 /hpf (0-2) 10/10/24 Unknown Urine WBC 0-5 /hpf (0-5) 10/10/24 Unknown Ur Squamous Epith Cells 0-5 /hpf (0-5) 10/10/24 Unknown Urine Bacteria None seen /hpf (NONE) 10/10/24 Unknown Hyaline Casts 0-4 /lpf H 10/10/24 Unknown Ur Random Sodium 65 mmol/L 10/11/24 11:00 Ur Random Potassium 30 mmol/L 10/11/24 11:00 Ur Random Chloride 55 mmol/L 10/11/24 11:00 Urine Creatinine 48 mg/dL (39-259) 10/11/24 11:00 Vitals Last Vital Signs Temp 98.8 F 10/12/24 08:00 Pulse 78 10/12/24 08:00 Resp 14 10/12/24 08:00 BP 121/76 10/12/24 08:00 Pulse Ox 96 10/12/24 08:00 O2 Del Method Room Air 10/12/24 08:00 Discharge Plan Discharge Patient Disposition: Home Condition: Stable Prescriptions: Continued levetiracetam [Keppra] 1,000 mg tablet 1,000 mg PO BID levetiracetam [Keppra] 250 mg tablet 250 mg PO BID benztropine 0.5 mg tablet 0.5 mg PO DAILY Qty: 30 6RF sodium chloride 1,000 mg Tablet,Soluble 1,000 mg PO BID Qty: 60 0RF acetaminophen [Tylenol Extra Strength] 500 mg Tablet 1,000 mg PO Q6H MDD PAIN PRN (Reason: Y) diphenhydramine HCl [Banophen] 25 mg Tablet 25 mg PO TID PRN (Reason: Itching) lisinopril 5 mg Tablet 5 mg PO DAILY albuterol sulfate [Ventolin HFA] 90 mcg/actuation Hfa Aerosol Inhaler 2 puff INHALATION Q6H PRN (Reason: Shortness Of Breath Or Wheezing) [place] Nasal 0.65 % Aerosol,[place] 1 spray INTRANASAL QID PRN (Reason: Nasal Congestion) triamcinolone acetonide 0.5 % ointment 1 applic topical BID PRN (Reason: Skin Irritation) Discontinued prednisone 10 mg tablet 10 mg PO DAILY Qty: 7 0RF No Action aripiprazole [Abilify] 30 mg tablet 30 mg PO .morning Qty: 30 6RF Rx Instructions: Take one tablet every morning perphenazine 4 mg tablet 4 mg PO DIRECTED Qty: 30 0RF Rx Instructions: Take one tablet twice per day x 14 days then discontinue Discharge Orders: Discharge Order (Routine); Ordered 10/12/24 Ordered By: Jesse Rodriguez Referrals: [facility] [Outside] Mague Spence MD [Primary Care Provider] - Discharge Diet: Cardiac Discharge Activity: Resume usual activity Patient Instructions: Prednisone (By mouth), Hyponatremia (GEN), Opioid Safety Activity Restrictions/Additional Instructions: -please restrict fluid intake to 1200ml per day -Please follow-up with primary care provider as outpatient Discharge Attestations Time Spent in Discharge Care*: greater than 30 min Status at Discharge: Cognitive status at discharge: mildly impaired cognition , Behavioral status at discharge: cooperative , Quality Metrics Clinical Quality Measures [ No reported AMI, CVA or VTE this stay] Coding Level of Care Code 15663 Total time (in minutes) for Discharge: 45 Diagnoses Chronic hyponatremia E87.1 Paranoid schizophrenia F20.0 Acute psychosis F23 Rash R21 AMS (altered mental status) R41.82
--- NOTE | 2024-10-12 11:41 | PM.PN ---
Subjective Subjective: no new complaints Medications: Reviewed: Yes Vitals/I&O/Wt Last Vital Signs Temp 98.8 F 10/12/24 08:00 Pulse 78 10/12/24 08:00 Resp 14 10/12/24 08:00 BP 121/76 10/12/24 08:00 Pulse Ox 96 10/12/24 08:00 O2 Del Method Room Air 10/12/24 08:00 10/11/24 10/12/24 10/12/24 22:59 06:59 14:59 Intake Total 1108.333 / 1708.333 450 / 2158.333 Output Total 400 / 800 400 / 400 Balance 708.333 / 908.333 450 / 1358.333 -400 / -400 Weight last 48 hrs Weight 84.051 kg Weight 82.1 kg Weight 83.416 kg Weight 83.461 kg Physical Exam Narrative: Patient is confused sitting up in bed. No apparent distress. Vital signs noted. HEENT normocephalic atraumatic. Neck is supple. Lungs clear to auscultation bilaterally. Heart regular no rubs or gallops. Abdomen soft positive bowel sounds. Extremities no edema in his legs. He does have a rash with edema on his arms. Neuro confused. Data 10/12/24 06:21 10/12/24 06:21 A&P Assessment and plan (1) Hyponatremia: 69-year-old gentleman with hyponatremia. His serum sodium is 123 2 weeks ago was 125 July his sodium was as low as 119 and improved to 136 while in the hospital. hyponatremia : possibly from polydipsia , continue fluid restriction and salt tabs , na stable 129 today psychiatric meds can cause hyponatremia anbd SIAD -head CT normal cxr w/ empysema- no masses noted The patient was seen and examined with the aid of A/V equipment and a nurse helping. Case was discussed in detail with Dr. Dooley. Will follow the patient along with you. Attestations Medical Necessity Statement*: per [facility] Coding Level of Care Code Acute Code for Chg Fwd Diagnoses Hyponatremia E87.1
--- NOTE | 2024-10-12 11:55 | PC.NURSE ---
Attempted to call report to [place]-no answer.
[2024-10-12 11:56] VITALS: BP 129/74; PULSE 91; RESP 16; TEMP 36.3; O2SAT 95
[2024-10-12 12:04] VITALS: BP 129/74; PULSE 91; RESP 16; TEMP 36.3; O2SAT 95
--- NOTE | 2024-10-12 12:58 | PC.NURSE ---
Transport here to take pt back to [place]. Attempted to call [place] again, no answer. Discharge packet sent with pt
== END 2024-10-12 13:00 | disposition home or self-care (01) ==
LOC: ER 19:00 → MEDSURG 23:13
PROVIDERS: Internal Medicine Nephrology; Admitting Provider Family Medicine; Emergency Provider Emergency Medicine; PCP Family Medicine; Visit Provider Family Medicine
DX: E87.1 Hypo-osmolality and hyponatremia (principal); F20.0 Paranoid schizophrenia; R21 Rash and other nonspecific skin eruption; R41.82 Altered mental status, unspecified; I10 Essential (primary) hypertension; R63.1 Polydipsia; Z87.891 Personal history of nicotine dependence
CPT/HCPCS: 36415; 36416; 70450; 71045; 80048; 80053; 80061; 81001; 82140; 82436; 82570; 82962; 83036; 83735; 84100; 84133; 84300; 84443; 84550; 85025; 93005; 94664; 96361; 96374; 96375; 97110; 97161; 97165; 99285; G0378; J2470; J2919; J7030; J7512; Q0175

== ENCOUNTER → 2024-11-12 11:23 | Outpatient (BNVA) | payer OTHER, SELFPAY ==
[2024-10-29 16:42] VITALS: BP 127/89; BMI 25.5
== END ==
PROVIDERS: PCP Family Medicine; Visit Provider Nurse Practitioner Psychiatric/Mental Health
DX: Z79.899 Other long term (current) drug therapy (principal)
CPT/HCPCS: 80053; 80061; 83036

== ENCOUNTER → 2025-06-06 10:59 | Outpatient (BNVA) | payer OTHER, SELFPAY ==
[2025-04-01 09:38] VITALS: BP 127/89; BMI 25.5
== END ==
PROVIDERS: PCP Family Medicine; Visit Provider Nurse Practitioner Psychiatric/Mental Health
DX: F20.0 Paranoid schizophrenia (principal); Z79.899 Other long term (current) drug therapy
CPT/HCPCS: 80061; 83036